=== PATIENT | female | born 1935 | race Caucasian/White ===

== ENCOUNTER 2016-11-25 17:10 | Emergency (ER) | payer OTHER, MEDICARE ==
[2016-11-25 17:40] VITALS: BP 140/80; PULSE 84; TEMP 97.5; BMI 30.2
[2016-11-25] MEDS ORDERED: SODIUM CHLORIDE 1,000 ML IV SCH (19:45)
[2016-11-25 20:52] LABS: BASOPHIL 0.8 % (0-2.0); EOSINOPHIL 2.3 % (0-4.5); MCH 26.9 pg (25.7-33.7); MCHC 32.5 g/dl (32.0-36.0); MEAN CELL VOLUME 82.9 fl (80-96); NEUTROPHILS 66.9 % (42.8-82.8); PLATELET COUNT 257 K/MM3 (134-434); RDW 15.6 % (11.6-15.6); WHITE BLOOD COUNT 6.9 K/mm3 (4.0-10.0)
[2016-11-25 21:00] LABS: URINE APPEARANCE CLEAR; URINE BILIRUBIN NEGATIVE (NEGATIVE); URINE BLOOD NEGATIVE (NEGATIVE); URINE COLOR LTYELLOW; URINE GLUCOSE (UA) NEGATIVE (NEGATIVE); URINE KETONE NEGATIVE (NEGATIVE); URINE LEUK ESTERASE NEGATIVE (NEGATIVE); URINE NITRITE NEGATIVE (NEGATIVE); URINE PROTEIN NEGATIVE (NEGATIVE); URINE UROBILINOGEN NEGATIVE E.U./dl (0.2-1.0)
[2016-11-25] MEDS ORDERED: METOCLOPRAMIDE HCL INJECTION 10 MG/2 ML VIAL IVPB ONE (21:01)
--- NOTE | 2016-11-25 21:01 | PDOC ---
History of Present Illness - General Chief Complaint: Pain, Acute Stated Complaint: ABDOMINAL PAIN Time Seen by Provider: 11/25/16 18:48 History Source: Patient, Family Exam Limitations: Language Barrier - History of Present Illness Travel History: No Initial Comments: 11/25/16 20:43 81yo Female patient presents to ED with son and . Patient son translated for mother in Vincentian from [place]. Patient c/o abd pain x 3 days getting worse which has since subsided while in ED. Patient reports that pain is to her right upper and lower quadrant and became severe around 430pm lasting for 15-20 mins in duration. Patient denies n/v/d, fever, CP, Back pain, dysuria, hematuria , rectal bleeding, poor appetite, or any other complaints at this time. Patient last ate full meal at 530ish pm. She reports normal BM today. Recent Thyroid nodule removal (Cancerous). Timing/Duration: reports: getting worse Quality: reports: severe Abdominal Pain Onset Location: reports: RUQ, RLQ Pain Radiation: reports: no radiation Activities at Onset: reports: no specific activity Treatment Prior to Arrive: worse with: analgesics, antacids, cold pack, heat, laxative, enema, other Aggravating Factors: worse with: None, Defecation, Eating, Emotional upset, Exertion, [place], Movement, Voiding, Change in position Alleviating Factors: worse with: None, Belching, Shallow Breathing, Defecation, Eating, Holding Breath, Passing Gas, Change in Position, Rest, Voiding, Vomiting Past History - Travel Traveled outside of the country in the last 30 days: No Close contact w/someone who was outside of country & ill: No - Past Medical History Allergies/Adverse Reactions: Allergies Allergy/AdvReac Type Severity Reaction Status Date / Time No Known Drug Allergies Allergy Verified 11/25/16 17:33 Home Medications: Ambulatory Orders Amlodipine Besylate [Norvasc -] 2.5 mg PO DAILY 11/25/16 Calcium Carbonate [Calcium] 500 mg PO DAILY 11/25/16 Cholecalciferol (Vitamin D3) [Vitamin D3 -] 1,000 unit PO DAILY 11/25/16 Citalopram Hydrobromide [Celexa -] 20 mg PO DAILY 11/25/16 Lactobacillus Acidophilus [Probiotic] 1 each PO DAILY 11/25/16 Lansoprazole [Prevacid -] 15 mg PO DAILY 11/25/16 Vitamin E 200 unit PO DAILY 11/25/16 Warfarin Sodium [Coumadin] 5 mg PO DAILY 11/25/16 Anemia: No Asthma: No Cancer: No Cardiac Disorders: Yes (MITRAL VALVE REPLACEMENT) CVA: No COPD: No CHF: No Dementia: No Diabetes: No GI Disorders: No Disorders: No HTN: No Hypercholesterolemia: No Liver Disease: No Seizures: No Thyroid Disease: Yes (PARTIAL THYRODECTOMY-11/20/2016) - Surgical History Cardiac Surgery: Yes (VALVE SX) Cholecystectomy: Yes - Psycho/Social/Smoking Cessation Hx Suicidal Ideation: No Smoking Status: No Smoking History: Never smoked Have you smoked in the past 12 months: No Number of Cigarettes Smoked Daily: 0 Hx Alcohol Use: Yes (WINE OCCAS) Drug/Substance Use Hx: No Substance Use Type: None Hx Substance Use Treatment: No Abd/GI Specific PMHX - Complaint Specific PMHX Colitis: No Diverticulitis: No Gall Bladder Disease: No GERD: No Hepatitis: No Irritable Bowel Synd (IBS): No Pancreatitis: No GI Ulcer Disease: No Review of Systems - Review of Systems Able to Perform ROS?: Yes Is the patient limited Vincentian proficient: No Constitutional: No: Chills, Fever Respiratory: No: Cough, Shortness of Breath, Stridor, Wheezing Cardiac (ROS): Yes: Irregular Heart Rate. No: Chest Pain, Edema, Palpitations, Chest Tightness ABD/GI: Yes: Other (Abdominal Pain). No: Constipated, Diarrhea, Nausea, Poor Appetite, Poor Fluid Intake, Rectal Bleeding, Vomiting, Tarry Stools : No: Burning, Dysuria, Flank Pain, Hematuria Musculoskeletal: No: Back Pain Integumentary: No: Bruising, Rash Neurological: No: Headache, Unsteady Gait, Ataxia All Other Systems: Reviewed and Negative *Physical Exam - Vital Signs Last Vital Signs Temp Pulse Resp BP Pulse Ox 97.5 F L 84 17 140/80 95 11/25/16 17:33 11/25/16 17:33 11/25/16 17:33 11/25/16 17:33 11/25/16 17:33 - Physical Exam General Appearance: Yes: Nourished, Appropriately Dressed. No: Apparent Distress, Mild Distress, Moderate Distress, Severe Distress Neck: positive: Trachea midline, Supple. negative: Tender, Normal Thyroid, Rigid, Stridor, Lymphadenopathy (R), Lymphadenopathy (L) Respiratory/Chest: positive: Lungs Clear, Normal Breath Sounds. negative: Respiratory Distress, Accessory Muscle Use, Labored Respiration, Rapid RR, Rhonchi, Stridor, Wheezing Cardiovascular: positive: Irregularly Irregular. negative: Edema, JVD, Murmur Gastrointestinal/Abdominal: positive: Increased Bowel Sounds, Distended. negative: Soft, Guarding, Rebound, Tenderness, Mass Musculoskeletal: negative: Normal Inspection Extremity: positive: Normal Capillary Refill, Normal Inspection, Normal Range of Motion. 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 member II-XII NML intact, Fully Oriented, Alert, Normal Mood/ Affect, Normal Response ED Treatment Course - LABORATORY CBC & Chemistry Diagram: 11/25/16 20:19 11/25/16 20:19 - RADIOLOGY Radiology Studies Ordered: Category Date Time Status ABDOMEN & PELVIS CT WITH CONTR [CT] Stat CT Scan 11/25/16 19:35 Ordered *DC/Admit/Observation/Transfer Diagnosis at time of Disposition: Abdominal pain Qualifiers: Abdominal location: right upper quadrant Qualified Code(s): R10.11 - Right upper quadrant pain - Discharge Dispostion Disposition: HOME Condition at time of disposition: Improved Admit: No - Patient Instructions Printed Discharge Instructions: DI for Abdominal Pain-Adult Additional Instructions: FOLLOW UP WITH YOUR PRIMARY CARE PROVIDER THIS WEEK. CALL TO SCHEDULE APPOINTMENT. CONTINUE YOUR MEDICATIONS PRESCRIBED. RETURN IF SYMPTOMS WORSEN OR ANY CONCERNS FOR FURTHER EVALUATION. Print Language: ARABIC
[2016-11-25] MEDS ORDERED: METOCLOPRAMIDE HCL INJECTION 10 MG/2 ML VIAL ONE (21:14)
[2016-11-25 21:45] LABS: ALBUMIN 3.5 g/dl (3.4-5.0); AMYLASE 48 U/L (25-115); ANION GAP 10 (8-16); BILIRUBIN,TOTAL 0.3 mg/dL (0.2-1.0); CALCIUM 9.6 mg/dL (8.5-10.1); CO2 29 mmol/L (21-32); CREATININE 0.8 mg/dL (0.55-1.02); GLUCOSE,RANDOM 96 mg/dL (74-106); SGOT/AST 52 U/L (15-37); SGPT/ALT 57 U/L (12-78); TOT PROT 6.6 g/dl (6.4-8.2)
[2016-11-25 21:48] LABS: ALK PHOS 77 U/L (45-117); TROPONIN I < 0.02 ng/ml (0.00-0.05)
[2016-11-26] MEDS ORDERED: PANTOPRAZOLE SODIUM 40 MG in SODIUM CHLORIDE 100 ML IVPB ONE (00:15)
[2016-11-26] MEDS ORDERED: PANTOPRAZOLE SODIUM 40 MG VIAL ONE (01:25)
--- NOTE | 2016-11-26 23:22 | EKG ---
Test Reason : Blood Pressure : / mmHG Vent. Rate : 068 BPM Atrial Rate : 500 BPM P-R Int : 000 ms QRS Dur : 144 ms QT Int : 440 ms P-R-T Axes : 000 -06 -12 degrees QTc Int : 467 ms UNDETERMINED RHYTHM CANNOT RULE OUT ATRIAL FIBRILLATION RIGHT BUNDLE BRANCH BLOCK ABNORMAL ECG WHEN COMPARED WITH ECG OF 10-DEC-2012 18:55, POSSIBLE RHYTHM CHANGE CLINICAL CORRELATION IS RECOMMENDED Confirmed by LISA CLAY, BREANNE ([id number]) on 11/26/2016 11:22:04 PM Referred By: Confirmed By:BREANNE GONZALEZ MD
== END 2016-11-26 01:55 | disposition home or self-care (01) ==
LOC: JER 17:10
PROC: 3E0337Z Introduction of Electrolytic and Water Balance Substance into Peripheral Vein, Percutaneous Approach (ICD-10-PCS; principal; 2016-11-25)
PROC: 3E033GC Introduction of Other Therapeutic Substance into Peripheral Vein, Percutaneous Approach (ICD-10-PCS; 2016-11-25)
PROC: 3E033GC Introduction of Other Therapeutic Substance into Peripheral Vein, Percutaneous Approach (ICD-10-PCS; 2016-11-25)
DX: R10.11 Right upper quadrant pain (principal); Z95.2 Presence of prosthetic heart valve; Z79.01 Long term (current) use of anticoagulants; Z85.850 Personal history of malignant neoplasm of thyroid
CPT/HCPCS: 36415; 74177-TC; 76705-TC; 80053; 81003; 82150; 82550; 83605; 83690; 84484; 85025; 87086; 93005; 93010; 96361; 96365; 96375; 99282-25; Q9967

== ENCOUNTER 2020-08-04 11:27 | Inpatient (IN) | payer OTHER, MEDICARE ==
--- NOTE | 2020-08-04 11:38 | PDOC ---
History of Present Illness - General Chief Complaint: Pain, Acute Stated Complaint: ABD PAIN Time Seen by Provider: 08/04/20 11:38 - History of Present Illness Initial Comments: 08/04/20 12:14 85 yo female with pmh of afib (on warfarin), cholecystectomy, valve replacement presents to ED for lower abd pain for the last two weeks. Pt is primarily afghan speaking and daughter translated. Pt explains that she is been having on and off lower abdominal pain for two weeks. The abdominal pain has been constant for the last five days. Pt on Friday called her PCP Dr. Jhonathan Tejeda for pain who prescribed her cephalexin 500 mg TID. Pt sxs since then have been getting worse and after calling her pcp again today her pcp told her to come straght to the ER. PT explains pain is dull 6/10 pain going along her lower abdomen. Pt explains no fevers, chills, appetite change, chest pain, SOB, dysuria, urinary frequency, back pain, n/v/d/c, bloody stools, or black stools. PMH: afib Meds: warfarin 5mg, levothyrocitin .75mg, Famotidine 20mg Allergies: NKA PSH: Cholecystectomy PCP: Dr. Jhonathan Damon GI: Dr. Saavedra Past History - Medical History Allergies/Adverse Reactions: Allergies Allergy/AdvReac Type Severity Reaction Status Date / Time No Known Drug Allergies Allergy Verified 08/04/20 12:39 Home Medications: Ambulatory Orders Warfarin Sodium [Coumadin] 5 mg PO DAILY 11/25/16 Famotidine [Pepcid] 20 mg PO DAILY 08/04/20 Levothyroxine [Synthroid -] 75 mcg PO DAILY 08/04/20 Anemia: No Asthma: No Cancer: No Cardiac Disorders: Yes (MITRAL VALVE REPLACEMENT) CVA: No COPD: No CHF: No Dementia: No Diabetes: No GI Disorders: No Disorders: No HTN: No Hypercholesterolemia: No Liver Disease: No Seizures: No Thyroid Disease: Yes (PARTIAL THYRODECTOMY-11/20/2016) - Surgical History Cardiac Surgery: Yes (VALVE SX) Cholecystectomy: Yes - Psycho-Social/Smoking History Smoking Status: No Smoking History: Never smoked Have you smoked in the past 12 months: No Number of Cigarettes Smoked Daily: 0 Review of Systems - Review of Systems Comments:: 08/04/20 12:36 GENERAL/CONSTITUTIONAL: No fever or chills. No weakness. HEAD, EYES, EARS, NOSE AND THROAT: No change in vision. No ear pain or discharge. No sore throat. CARDIOVASCULAR: No chest pain or shortness of breath RESPIRATORY: No cough, wheezing, or hemoptysis. GASTROINTESTINAL: No nausea, vomiting, diarrhea or constipation. Lower Abd pain GENITOURINARY: No dysuria, frequency, or change in urination. MUSCULOSKELETAL: No joint or muscle swelling or pain. No neck or back pain. SKIN: No rash NEUROLOGIC: No headache, vertigo, loss of consciousness, or change in strength/sensation. ALLERGIC/IMMUNOLOGIC: No hives or skin allergy. *Physical Exam - Physical Exam 08/04/20 12:37 GENERAL: Awake, alert, and fully oriented, in moderate distress HEAD: No signs of trauma, normocephalic, atraumatic EYES EOMI, sclera anicteric, conjunctiva clear ENT: Auricles normal inspection, hearing grossly normal, nares patent, oropharynx clear without exudates. Moist mucosa NECK: Normal ROM, supple, no lymphadenopathy, JVD, or masses LUNGS: No distress, speaks full sentences, clear to auscultation bilaterally HEART:Irregular rate and rhythm. Systolic murmur ABDOMEN: Soft, nontender, normoactive bowel sounds. No guarding, no rebound. No masses EXTREMITIES : Normal inspection, Normal range of motion, no edema. No clubbing or cyanosis. NEUROLOGICAL: Cranial nerves II through XII grossly intact. Normal speech SKIN: Warm, Dry, normal turgor, no rashes or lesions noted Heart Score/ECG Review - ECG Impressions Comment:: 08/04/20 12:49 Irregular rhythm and rate at 78 bpm (AFib) Left axis deviated T wave inversion in V1-V3 similar to prior ECG in 2017 08/04/20 12:51 ED Treatment Course - LABORATORY CBC & Chemistry Diagram: 08/04/20 12:18 08/04/20 12:18 Medical Decision Making - Medical Decision Making 08/04/20 12:22 85 yo female with pmh of afib on warfarin presents to ED for lower abdominal pain going on for the last 2 weeks. Pt abd soft and nontender in all 4 quadrants. Ddx: Mesenteric Ischemia, Ischemic colitis, UTI, diverticulitis, cystitis, Appendicitis, muscle pain Will get CBC, CMP, lactic acid, Coags. Will also get CT either CTA or CT scan depending on renal level. Will also get UA for possible UTI. 08/04/20 13:59 Pt INR elevated to 7.18 with no active bleeding. Will hold warfarin next two doses. Also done stool occult blood to see any gi bleeding. Rectal exam showed no occult blood on exam. 08/04/20 14:25 Stool occult is positive for blood and with INR 7.18 will give 2.5 Vitamin K. Still waiting results of CTA of abd and pelvis 08/04/20 15:17 PT CTA showed no acute pathology. Pt pain is still the same so will give 2 mg morphine. Pt will be admitted for elevated INR, GI bleed and intractable abdominal pain. Dr. Mehta was called at told about pt ED course and plan. Dr. Mehta agreed with admission but does not go to [place] so said to admit to Hospitalist. TIRE MAINTENANCE TECHNICIAN Tiffanie Love was informed of pt HPI, ED course, and plan. Pt will be admitted to Dr. Puckett. Discharge - Discharge Information Problems reviewed: Yes Clinical Impression/Diagnosis: Elevated INR, Intractable abdominal pain GI bleed Qualifiers: GI bleed type/associated pathology: unspecified gastrointestinal hemorrhage type Qualified Code(s): K92.2 - Gastrointestinal hemorrhage, unspecified Condition: Stable - Admission Yes - Follow up/Referral Referrals: Jhonathan Bryson MD [Primary Care Provider] - - Patient Discharge Instructions - Post Discharge Activity
--- NOTE | 2020-08-04 11:45 | PDOC ---
Attending Attestation - Resident Resident Name: Sudhakar Alatorre - ED Attending Attestation I have performed the following: I have examined & evaluated the patient, The case was reviewed & discussed with the resident, I agree w/resident's findings & plan, Exceptions are as noted - HPI HPI: 08/04/20 11:44 85 YOF with h/o A-fib on warfarin, CAD s/p CABG, HTN, partial thyroidectomy, mitral valve replacement, and cholecystectomy, who p/w lower abdominal pain fluctuating for the past 2 weeks which became worse in the past 4 days. She denies any f/c/n/v/d/c, dysuria, hematuria, black stool or bloody stool. She has had no sick contacts recently. She called her PCP Dr. Landaverde who prescribed an antibiotic on 4 days ago for the possibility of bacterial infection, which she has been taking since that time. - Physicial Exam PE: 08/04/20 11:44 GENERAL: elderly, mild distress, answers questions appropriately, accompanied by daughter at bedside who assists in history HEENT: PERRLA, EOMI, moist mucous membranes NECK/BACK: no midline ttp, no spinal stepoff or deformity, no hematoma, full ROM, neck supple CARDIOVASCULAR: irregularly irregular but not tachycardic, 2/6 systolic murmur, strong peripheral pulses, capillary refill <2 seconds, extremities wwp, no edema LUNGS/RESPIRATORY: no respiratory distress, CTAB GI/ABDOMEN: symmetric [id number], normoactive BS, soft, no ttp, no midline pulsatile masses : no CVA tenderness MSK/EXTREMITIES: no acute-appearing muscle atrophy, no acute deformity DERM/SKIN: warm and dry, no pallor, no jaundice, no rash, no pathologic- appearing bruising, no skin breakdown, no cuts, no lesions NEUROLOGICAL: GCS 15, CN II-XII grossly intact, 5/5 strength proximally and distally, no facial droop - Medical Decision Making 08/04/20 12:57 85YOF with A-fib on warfarin with last level checked p/w lower abdominal pain ongoing for 2 weeks Initial Vital Signs Temp Pulse Resp BP Pulse Ox 98.1 F 76 19 118/76 99 08/04/20 11:27 08/04/20 11:27 08/04/20 11:27 08/04/20 11:27 08/04/20 11:27 The patient does have pain out of proportion with examination, and A-fib. She is on warfarin and last INR was 2.02 on 07/13/20. States taking it as prescribed. There is concern for mesenteric ischemic or slightly less likely ischemic colitis. The patient has had no rectal bleeding she can report. 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 The patient is high risk for mesenteric ischemic and needs abdomen/pelvis CTA. Provider Orders Category Date Time Status Decision to Admit to Hospital Routine Admission 08/04/20 15:04 Active ABDOMEN/PELVIS CTA W/WO CONTR [CT] Stat CT Scan 08/04/20 13:08 Completed ELECTROCARDIOGRAM [CARD] Stat Cardiology 08/04/20 12:01 Ordered EKG needed NOW Care 08/04/20 12:01 Completed CBC WITH DIFFERENTIAL Stat Lab 08/04/20 12:18 Completed COMP METABOLIC PANEL Stat Lab 08/04/20 12:18 Completed LACTIC ACID Stat Lab 08/04/20 12:18 Completed PT/INR (PROTHROMBIN TIME) Stat Lab 08/04/20 12:18 Completed PTT [ACTIVATED PTT] Stat Lab 08/04/20 12:18 Completed STOOL FOR OCCULT BLOOD Stat Lab 08/04/20 13:44 Completed UA ([facility] ONLY) Stat Lab 08/04/20 12:30 Completed URINE MICROSCOPIC (RAZ) Stat Lab 08/04/20 12:30 Completed Acetaminophen Injection [Ofirmev Injection -] Medication 08/04/20 12:02 Discontinued 1,000 mg IVPB ONCE ONE Acetaminophen Injection [Ofirmev Injection -] 100 ml Medication 08/04/20 12:34 Discontinued IVPB UD Morphine Injection - Medication 08/04/20 15:05 Discontinued 2 mg IVPUSH ONCE ONE Phytonadione [Mephyton -] Medication 08/04/20 14:20 Discontinued 2.5 mg PO ONCE ONE URINE CULTURE Stat Micro 08/04/20 12:30 Received Medications Discontinued Medications Generic Name Dose Route Start Last Admin Trade Name Freq PRN Reason Stop Dose Admin Acetaminophen 1,000 mg 08/04/20 12:02 08/04/20 12:38 Ofirmev Injection - IVPB 08/04/20 12:03 1,000 mg ONCE ONE Administration Acetaminophen Confirm 08/04/20 12:34 Ofirmev Injection - Administered 08/04/20 12:35 Dose 100 mls @ ud IVPB .STK-MED ONE Morphine Sulfate 2 mg 08/04/20 15:05 08/04/20 15:18 Morphine Injection - IVPUSH 08/04/20 15:06 Not Given ONCE ONE Phytonadione 2.5 mg 08/04/20 14:20 08/04/20 14:43 Mephyton - PO 08/04/20 14:21 2.5 mg ONCE ONE Administration Lab Results WBC 5.7 K/mm3 (4.0-10.8) 08/04/20 12:18 RBC 3.87 M/mm3 (3.60-5.2) 08/04/20 12:18 Hgb 11.3 GM/dl (10.7-15.3) 08/04/20 12:18 Hct 35.3 % (32.4-45.2) 08/04/20 12:18 MCV 91.4 fl (80-96) 08/04/20 12:18 MCH 29.2 pg (25.7-33.7) 08/04/20 12:18 MCHC 31.9 g/dl (32.0-36.0) L 08/04/20 12:18 RDW 14.6 % (11.6-15.6) 08/04/20 12:18 Plt Count 212 K/MM3 (134-434) 08/04/20 12:18 MPV 10.3 fl (7.5-11.1) 08/04/20 12:18 Absolute Neuts (auto) 3.5 K/mm3 08/04/20 12:18 Neutrophils % 62.3 % (42.8-82.8) 08/04/20 12:18 Lymphocytes % 25.9 % (8-40) 08/04/20 12:18 Monocytes % 7.2 % (3.8-10.2) 08/04/20 12:18 Eosinophils % 2.8 % (0-4.5) 08/04/20 12:18 Basophils % 1.8 % (0-2.0) 08/04/20 12:18 PT with INR 84.3 SEC (10.2-13.0) H 08/04/20 12:18 INR 7.84 (0.82-1.09) H* 08/04/20 12:18 PTT (Actin FS) 60.3 SECONDS (25.2-36.5) H 08/04/20 12:18 Sodium 138 mmol/L (136-145) 08/04/20 12:18 Potassium 4.5 mmol/L (3.5-5.1) 08/04/20 12:18 Chloride 107 mmol/L (98-107) 08/04/20 12:18 Carbon Dioxide 26 mmol/L (21-32) 08/04/20 12:18 Anion Gap 5 MMOL/L (8-16) L 08/04/20 12:18 BUN 19.0 mg/dl (7-18) H 08/04/20 12:18 Creatinine 0.8 mg/dl (0.55-1.3) 08/04/20 12:18 Est GFR (CKD-EPI)AfAm 76.83 08/04/20 12:18 Est GFR (CKD-EPI)NonAf 66.29 08/04/20 12:18 Random Glucose 103 mg/dl (74-106) 08/04/20 12:18 Lactic Acid 1.2 mmol/L (0.4-2.0) 08/04/20 12:18 Calcium 8.5 mg/dl (8.5-10) 08/04/20 12:18 Total Bilirubin 0.5 mg/dl (0.2-1) 08/04/20 12:18 AST 28 U/L (15-37) 08/04/20 12:18 ALT 27 U/L (13-61) 08/04/20 12:18 Alkaline Phosphatase 53 U/L (45-117) 08/04/20 12:18 Total Protein 5.7 g/dl (6.4-8.2) L 08/04/20 12:18 Albumin 3.2 g/dl (3.4-5.0) L 08/04/20 12:18 Urine Color Yellow 08/04/20 12:30 Urine Appearance Clear 08/04/20 12:30 Urine pH 5.0 (4.5-8) 08/04/20 12:30 Urine Protein Negative (NEGATIVE) 08/04/20 12:30 Urine Glucose (UA) Negative (NEGATIVE) 08/04/20 12:30 Urine Ketones Negative (NEGATIVE) 08/04/20 12:30 Urine Blood Negative (NEGATIVE) 08/04/20 12:30 Urine Nitrite Negative (NEGATIVE) 08/04/20 12:30 Urine Bilirubin Negative (NEGATIVE) 08/04/20 12:30 Urine Urobilinogen 0.2 (0.2-1.0) 08/04/20 12:30 Ur Leukocyte Esterase Trace (NEGATIVE) H 08/04/20 12:30 Urine RBC 0-2 /hpf (0-4) 08/04/20 12:30 Urine WBC 2-5 (NEGATIVE) 08/04/20 12:30 Ur Transition Epith Cell Few /hpf 08/04/20 12:30 Urine Bacteria Few /hpf (NEGATIVE) 08/04/20 12:30 Stool Occult Blood Positive (NEGATIVE) 08/04/20 13:44 CT/ABDOMEN/PELVIS CTA W/WO CONTR Patient Name: RUSS SAXENA Accession Number: [id number] :[id number] Gender: Female Procedure: ABDOMEN/PELVIS CTA W/WO CONTR INDICATION: 85 years Female rule out mesenteric ischemia TECHNIQUE: CT scan of the abdomen/pelvis was performed from the lung bases through the symphysis pubis. Enteric contrast: Not administered. IV contrast: Administered. COMPARISON: November 25, 2016 FINDINGS/DISCUSSION: Lung bases: Assessment is significantly degraded by respiratory motion. No pleural effusion. Dependent atelectasis. 0.5 cm right lower lobe nodule (image 4 of series 2). Heart: Cardiomegaly. Hyperdense material at the mitral and aortic valves. Correlate for history of intervention. Aorta: Normal caliber. Extensive atherosclerotic calcifications. No evidence of dissection. The primary branches of the abdominal aorta demonstrate conventional anatomy and unremarkable op acification. Esophagus: Large hiatal hernia. Liver: Normal size and contour. Pneumobilia is redemonstrated. The hepatic veins are patent. Spleen: Unremarkable. Pancreas: Unremarkable. Gallbladder: Surgically absent. Adrenals: Unremarkable. Kidneys: No hydronephrosis. Retroperitoneum: Unremarkable. Peritoneum: No free fluid or air. No lymphadenopathy. Bowel: No evidence of obstruction. The appendix is not reliably identified, however there is no secondary evidence to suggest appendicitis. Extensive diverticulosis without evidence of diverticulitis. Pelvis: No free pelvic fluid. No bulky iliac or inguinal adenopathy. Urinary bladder: Unremarkable. Uterus: Unremarkable. Adnexa: Unremarkable. Bones: Multilevel degenerative disc disease. L4-L5 fusion hardware is demonstrated. Focus of low attenuation at the L1 vertebral body is not significantly changed. Other: Fat-containing umbilical hernia. IMPRESSION: Assessment is degraded by significant respiratory motion artifacts. No evidence of aortic dissection. Primary branches of the abdominal aorta demonstrate conventional anatomy and unremarkable opacification with contrast. Large hiatal hernia. Extensive diverticulosis without evidence of diverticulitis. Status post cholecystectomy with pneumobilia. Cardiomegaly. 0.5 cm right lower lobe nodule is not seen on the prior study. If patient is clinically deemed to be high risk, a follow-up chest CT in 6 months is recommended. 08/04/20 15:40 Admission protocols per resident note. Patient requiring admission for intractable abdominal pain, GIB, supratherapeutic INR. Has been given small dose vitamin K to start out. Heart Score/ECG Review #1 08/04/20 11:43 A-fib, rate 74, normal axis, RBBB, TWF in aVF, no other ischemic ST-T changes Discharge - Discharge Information Problems reviewed: Yes Clinical Impression/Diagnosis: Elevated INR, Intractable abdominal pain GI bleed Qualifiers: GI bleed type/associated pathology: unspecified gastrointestinal hemorrhage type Qualified Code(s): K92.2 - Gastrointestinal hemorrhage, unspecified Condition: Stable - Admission Yes - Follow up/Referral Referrals: Jhonathan Bryson MD [Primary Care Provider] - - Patient Discharge Instructions - Post Discharge Activity
--- OUTSIDE RECORDS SUMMARY | 2020-08-04 11:52 | XMS ---
:1935 Author Organization [facility] Care Team Providers Name Role Phone ANGELINE GIL Unavailable Unavailable REECE TOVAR Unavailable Unavailable Re-disclosure Warning The records that you are about to access may contain information from federally- assisted alcohol or drug abuse programs. If such information is present, then the following federally mandated warning applies: This information has been disclosed to you from records protected by federal confidentiality rules (42 CFR part 2). The federal rules prohibit you from making any further disclosure of this information unless further disclosure is expressly permitted by the written consent of the person to whom it pertains or as otherwise permitted by 42 CFR part 2. A general authorization for the release of medical or other information is NOT sufficient for this purpose. The Federal rules restrict any use of the information to criminally investigate or prosecute any alcohol or drug abuse patient.The records that you are about to access may contain highly sensitive health information, the redisclosure of which is protected by Article 27-F of the [facility] Public Health law. If you continue you may haveaccess to information: Regarding HIV / AIDS; Provided by facilities licensed or operated by the [facility] Office of Mental Health; or Provided by the [facility] Office for People With Developmental Disabilities. If such information is present, then the following [facility] mandated warning applies: This information has been disclosed to you from confidential records which are protected by state law. State law prohibits you from making any further disclosure of this information without the specific written consent of the person to whom it pertains, or as otherwise permitted by law. Any unauthorized further disclosure in violation of state law may result in a fine or retirement sentence or both. A general authorization for the release of medical or other information is NOT sufficient authorization for further disclosure. Allergies and Adverse Reactions Type Description Substance Reaction Status Data Source(s ) Food allergy No Known Food No Known Food [facility] Allergies Allergies Health [facility] Drug allergy No Known Drug No Known Drug [facility] Allergies Allergies [facility] Drug allergy No Known Allergies No Known [facility] Allergies Health [facility] Encounters Encounter Providers Location Date Indications Data Source(s ) Outpatient Attender: [place], 06/29/2019 DIZZINESS [facility] RICHARDAttender: 11:06:00 PM [place] [facility] LOUISE, EDT EnerG2 ERICAdmitter: ANGELINE GIL DIZZINESS [place] Emergency Attender: LOUISE, 06/29/2019 12:43:00 FALL HEAD [facility] ERICAdmitter: LOUISE, PM EDT [facility] Insurance Providers Payer name Policy type Policy ID Covered Covered libertarian's Policy P isrrael / Coverage libertarian ID relationship to Connolly Inf ormation type connolly [facility] [id number] CARE [employer]IONS MEDICARE [id number] Problems, Conditions, and Diagnoses Code Display Name Description Problem Type Effective Data Sour ce(s) Dates 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 06/29/2019 [place] (current) use of (CURRENT) USE OF 11:06:00 PM C [employer] anticoagulants ANTICOAGULANTS EDT Care EnerG2 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 Diagnosis 06/29/2019 [place] of other specified OF OTHER SPECIFIED 11:06:00 [facility] parts of digestive PARTS OF DIGESTIVE EDT Care tract TRACT EnerG2 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 11:06:00 PM C [employer] valve VALVE EDT Care EnerG2 Z91.81 History of falling HISTORY OF FALLING Diagnosis 9 [place] 11:06:00 PM [facility] EDT Care EnerG2 E03.9 Hypothyroidism, HYPOTHYROIDISM, Diagnosis [facility] UNSPECIFIED 11:06:00 PM [facility] EDT Care EnerG2 K21.9 Gastro-esophageal GASTRO-ESOPHAGEAL Diagnosis 06/29/2019 [place] reflux disease REFLUX DISEASE 11:06:00 PM Count y Health without WITHOUT EDT Care esophagitis ESOPHAGITIS EnerG2 R42 Dizziness and DIZZINESS AND Diagnosis 06/29/2019 [facility] giddiness GIDDINESS 11:06:00 PM [facility] EDT Care EnerG2 R26.89 Other OTHER Diagnosis 06/29/2019 [place] abnormalities of ABNORMALITIES OF 11:06:00 PM Critical access hospital gait and mobility GAIT AND MOBILITY EDT Care Corporation M25.78 Osteophyte, OSTEOPHYTE, Diagnosis 06/29/2019 [place] vertebrae VERTEBRAE 11:06:00 PM [facility] EDT Care EnerG2 M48.02 Spinal stenosis, SPINAL STENOSIS, Diagnosis 06/29/[address] 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 06/29/2019 [place] pulmonary valve PULMONARY VALVE 11:06:00 PM Cou [facility] insufficiency INSUFFICIENCY EDT Care Corporation I35.1 Nonrheumatic NONRHEUMATIC Diagnosis 06/29/2019 [place] aortic (valve) AORTIC (VALVE) 11:06:00 PM Count Health insufficiency INSUFFICIENCY EDT Care Corporation I36.1 Nonrheumatic NONRHEUMATIC Diagnosis 06/29/2019 [place] tricuspid (valve) TRICUSPID (VALVE) 11:06:00 PM [facility] INSUFFICIENCY EDT Care Corporation I34.0 Nonrheumatic NONRHEUMATIC Diagnosis 06/29/2019 [place] mitral (valve) MITRAL (VALVE) 11:06:00 PM Count Health insufficiency INSUFFICIENCY EDT Care Corporation 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 11:06:00 PM [facility] block BLOCK EDT Care Corporation I51.7 Cardiomegaly CARDIOMEGALY Diagnosis 06/29/2019 [place] 11:06:00 PM [facility] EDT Care EnerG2 I48.2 Chronic atrial CHRONIC ATRIAL Diagnosis 06/29/2019 [facility] mary fibrillation FIBRILLATION 11:06:00 PM [facility] DocuSpeakT Care EnerG2 Y99.8 Other external OTHER EXTERNAL Diagnosis 06/29/2019 [facility] mary cause status CAUSE STATUS 11:06:00 PM [facility] DocuSpeakT [employer] Y92.090 Kitchen in other KITCHEN IN OTH Diagnosis 06/29/2019 [place] non-institutional NON-INSTITUTIONAL 11:06:00 PM [facility] residence as the RESIDENCE PLACE EDT Care place of [facility] occurrence of the external cause W07.XXXA Fall from chair, FALL FROM CHAIR, Diagnosis 06/29/2019 [facility] initial encounter INITIAL ENCOUNTER 11:06:00 PM [facility] EDT [facility] S09.90XA Unspecified injury UNSPECIFIED INJURY Diagnosis 9 [place] of head, initial OF HEAD, INITIAL 11:06:00 PM Critical access hospital encounter ENCOUNTER EDT Care EnerG2 Results ID Date Data Source [id number] 07/01/2019 01:24:03 PM EDT [facility] [id number] Corporation Name Value Range Interpretation Description Data Sup porting Code Source(s) Document(s ) Head (PACSIMAGE <td> 06/29/2019 [place] Without 16:46</td><td> [facility] Contrast- ) Final Head Without Health Care CT Result Contrast-CT Corporation Name: HEMANTH </td><td>arjun SOLANO MRN: [id number] Sex: F styleCode="Italic : s">(PACSIMAGE 1935 Location: F )</paragraph><br/ Admitting >
Final Physician: Result EMERGENCY

SERVICE Name: RUSS SAXENA Requesting
Physician: TAMEKA BALTAZAR Sex: F BRENDA
: Exam: CT HEAD 1935 C- 06/29/2019 Location: F 17:01
CLINICAL Admitting INDICATION: Physician: "R/O Bleed" EMERGENCY SERVICE TECHNIQUE:
CT images of Requesting the head were Physician: TAMEKA GUTIERREZ without the

administration Exam: CT HEAD C- of contrast. 06/29/2019 17:01 COMPARISON:

None. CLINICAL FINDINGS: INDICATION: "R/O Ventricular Bleed" caliber is

within normal TECHNIQUE: CT limits for the images of the johanny atrophy head were ent's stated obtained without age. There the is no administration intracranial
mass or mass of contrast. effect.

Density of the COMPARISON: brain None. parenchyma is

normal for the FINDINGS: patient's age.

There is no Ventricular demarcated caliber is within territorial normal limits for infarct. No the johanny atrophy acute
intraparenchym ent's stated al or age. subarachnoid
There hemorrhage is is no present. intracranial mass There is no or mass effect. extraaxial
collection. Density of the The brain parenchyma visualized is normal for the paranasal patient's age. sinuses are
well aerated. There is no The mastoid demarcated air cells are territorial well aerated. infarct. The
No visualized acute orbits are intraparenchymal unremarkable. or subarachnoid There is no hemorrhage is calvarial present. fracture.
There IMPRESSION: is no extraaxial No acute collection. intracranial

hemorrhage. The visualized paranasal sinuses Resident are well aerated. Radiologist:
Attending The mastoid Radiologist: air cells are Paxton Rodriguez well aerated.
Finalizing The visualized Radiologist: orbits are Paxton Rodriguez unremarkable.
Transcribed There is no Date: calvarial 06/29/2019 fracture. 17:42 Finalized

Date: IMPRESSION: No 06/29/2019 acute 17:44 intracranial hemorrhage.

<b r/> Resident Radiologist:
Attending Radiologist: Paxton Rodriguez MD
Finalizing Radiologist: Paxton Rodriguez MD
Transcribed Date: 06/29/2019 17:42
Finalized Date: 06/29/2019 17:44

</td> Angio (PACSIMAGE <td> 06/29/2019 [place] Head/Neck 16:46</td><td> [facility] CT ) Final Angio Head/Neck Health Car e Result CT Corporation Name: HEMANTH, </td><td>arjun SOLANO MRN: [id number] Sex: F styleCode="Italic : s">(PACSIMAGE 1935 Location: F )</paragraph><br/ Admitting >
Final Physician: Result EMERGENCY

SERVICE Name: RUSS SAXENA Requesting
Physician: TAMEKA BALTAZAR Sex: F BRENDA
: Exam: CT ANGIO 1935 HEAD/NECK Location: F 06/29/2019
17:03 Admitting CLINICAL Physician: INDICATION: EMERGENCY SERVICE Dizziness
TECHNIQUE: Requesting Noncontrast CT Physician: TAMEKA images of the GIOVANNY GUTIERREZ head were

obtained. CT Exam: CT ANGIO angiography of HEAD/NECK the head and 06/29/2019 17:03 neck was then obtained

following CLINICAL the INDICATION: intravenous Dizziness administration

of contrast. TECHNIQUE: Coronal and Noncontrast CT sagittal images of the reconstruction head were images were obtained. CT generated.
COMPARISON: angiography of None. the head and neck FINDINGS: was then obtained The left following common carotid
the artery arises intravenous from the administration of brachiocephali contrast. Coronal c artery, a and sagittal normal
variant. reconstruction There is images were calcified generated. atheroscleroti

c plaque COMPARISON: involving the None. right

carotid FINDINGS: bifurcation.
The There is no left common carotid carotid artery stenosis by arises from the NASCET brachiocephalic criteria..
The vertebral artery, a normal arteries are variant. patent and

without There is significant calcified stenosis.. atherosclerotic The major plaque involving intracranial the right arteries are
patent and carotid without bifurcation. significant There is no stenosis. carotid stenosis Atheroscleroti by NASCET c criteria.. calcification

of cavernous The vertebral segments of arteries are internal patent and carotid without arteries is significant noted. No stenosis.. gross aneurysm

is The major identified.. intracranial IMPRESSION: arteries are 1. No patent and carotid without stenosis by significant NASCET
criteria. 2. stenosis. Patency of the Atherosclerotic major calcification of intracranial cavernous arteries. segments
of Resident internal carotid Radiologist: arteries is Attending noted. No gross Radiologist: aneurysm is Paxton Rodriguez identified..

Finalizing IMPRESSION: Radiologist:
Paxton Rodriguez 1. No carotid MD stenosis by Transcribed NASCET criteria. Date:
06/29/2019 2. Patency of 17:46 the major Finalized intracranial Date: arteries. 06/29/2019 17:55

<b r/>
Resident Radiologist:
Attending Radiologist: Paxton Rodriguez MD
Finalizing Radiologist: Paxton Rodriguez MD
Transcribed Date: 06/29/2019 17:46
Finalized Date: 06/29/2019 17:55

</td> Brain C (PACSIMAGE <td> 06/30/2019 [place] Spine C- 15:56</td><td> [facility] MRI ) Final Brain C Spine C- Health Ca re Result MRI Corporation Name: HEMANTH, </td><td>arjun SOLANO MRN: [id number] Sex: F styleCode="Italic : s">(PACSIMAGE 1935 Location: F )</paragraph><br/ Admitting >
Final Physician: Result REECE TOVAR

Requesting Name: RUSS SAXENA Physician:
REECE TOVAR Exam: MRI Sex: F BRAIN C SPINE
: C- 06/30/2019 1933 17:01 Location: F CLINICAL
INDICATION: Admitting Dizziness, Physician: REECE trejo falls.
TECHNIQUE: Requesting Multiplanar, Physician: sequential MR REECE TOVAR imaging of the

brain and Exam: MRI BRAIN cervical spine C SPINE C- was obtained 06/30/2019 17:01 without the administration

of contrast.. CLINICAL INDICATION: COMPARISON: CT Dizziness, head 06/29/2019. imbalance, falls. FINDINGS: MRI brain:

There is no TECHNIQUE: abnormally Multiplanar, restricted sequential MR diffusion to imaging of the suggest acute brain and infarction.
Scattered cervical spine punctate foci was obtained of T2 without the hyperintensity administration of are present contrast.. in the

cerebral white COMPARISON: CT matter and head 06/29/2019. pontine tegmentum,

nonspecific FINDINGS: but compatible
MRI with chronic brain: small vessel

changes. No There is no evidence for abnormally acute restricted intracranial diffusion to hemorrhage is suggest acute demonstrated.
There is are infarction. punctate foci Scattered of punctate foci of susceptibility T2 hyperintensity artifact in are the right
present frontal in the cerebral lobe, left white matter and parietal lobe pontine and the right tegmentum, cerebellar nonspecific hemisphere
compatible but compatible with chronic with chronic microhemorrhag small vessel e. Ventricles changes. No are evidence nondilated.
for There is no acute extra-axial intracranial collection. hemorrhage is Choroid plexus demonstrated. xanthogranulom There is are as are
incidentally punctate foci of noted. susceptibility MRI cervical artifact in the spine: right frontal Images are
degraded by lobe, left motion parietal lobe and artifact. the right Slight cerebellar (approximately hemisphere 2-3 mm)
anterior compatible with subluxation of chronic C7 is noted microhemorrhage. relative to Ventricles are T1, likely nondilated. reflecting
chronic There is no degenerative extra-axial changes. The collection. expected Choroid plexus cervical xanthogranulomas curvature is
exaggerated. are There is incidentally multilevel noted. degenerative

narrowing of MRI cervical the spine: intervertebral

discs, which Images are appear degraded by desiccated. motion artifact. Hero Emanuel Type endplate

degenerative Slight changes are (approximately noted at C4/5 2-3 mm) anterior and C5/6. A subluxation of C7 small osseous is noted hemangioma is
noted in T1. relative to T1, The likely reflecting spinal cord is chronic normal in degenerative caliber. changes. Evaluation of
The parenchymal expected cervical susceptibility curvature is subacute exaggerated. limited by There is artifact, but multilevel no evidence
for degenerative edema/myelomal narrowing of the acia is noted. intervertebral C2-C3: discs, which There is a appear central disc
osteophyte desiccated. Modic complex Dr. Type endplate results in degenerative mild narrowing changes are of the central
canal. No noted at C4/5 and significant C5/6. A small neural osseous foraminal hemangioma is narrowing. noted in C3-C4: There
T1. is a central disc

osteophyte The spinal cord complex as is normal in well as caliber. ligamentous Evaluation of hypertrophy. parenchymal There is
bilateral susceptibility uncinate joint subacute limited hypertrophy by artifact, but resulting in no evidence mild bilateral
neural for foraminal edema/myelomalaci narrowing. a is noted. Central

canal is C2-C3: There is mildly a central disc narrowed. osteophyte C4-C5: There complex results is no in significant
mild spinal canal narrowing of the or neural central canal. No foraminal significant stenosis. neural foraminal C5-C6: There
is a disc narrowing. osteophyte
complex and C3-C4: There is a bilateral central disc uncinate osteophyte joint complex as well hypertrophy. as The central
canal is ligamentous moderate-sever hypertrophy. e central There is canal bilateral stenosis. The uncinate joint neural hypertrophy foramina are
narrowed resulting in mild bilaterally.. bilateral neural C6-C7: There foraminal is a disc narrowing. osteophyte Central complex and
canal bilateral is mildly uncinate narrowed. joint
hypertrophy. C4-C5: There is Central canal no significant is mildly spinal canal or narrowed. The neural foraminal neural
foramina are stenosis. narrowed.
C7-T1: There C5-C6: There is a is no disc osteophyte significant complex and spinal canal bilateral or neural uncinate foraminal
joint stenosis. hypertrophy. The IMPRESSION: central canal is No acute moderate-severe infarction. central Degenerative
canal changes of the stenosis. The cervical neural foramina spine, as are narrowed described, bilaterally.. notably
including C6-C7: There is a moderate-sever disc osteophyte e central complex and canal stenosis bilateral at C5/6. uncinate Resident
joint Radiologist: hypertrophy. Attending Central canal is Radiologist: mildly narrowed. Paxton Rodriguez The neural MD
Finalizing foramina are Radiologist: narrowed. Paxton Rodriguez
MD C7-T1: There is Transcribed no significant Date: spinal canal or 06/30/2019 neural foraminal 18:27
Finalized stenosis. Date:

06/30/2019 IMPRESSION: 18:36
No acute infarction.
Degenerative changes of the cervical spine, as described, notably
including moderate-severe central canal stenosis at C5/6.

<b r/> Resident Radiologist:
Attending Radiologist: Paxton Rodriguez MD
Finalizing Radiologist: Paxton Rodriguez MD
Transcribed Date: 06/30/2019 18:27
Finalized Date: 06/30/2019 18:36

</td> Chest (PACSIMAGE <td> 06/29/2019 [place] Portable 13:13</td><td> [facility] Final Chest Portable Health Care Result </td><td><[place] Name: chayito SAXENA MRN: styleCode="Italic [id number] Sex: F s">(PACSIMAGE : 1935 )</paragraph><br/ Location: F >
Final Admitting Result Physician:

EMERGENCY Name: RUSS SAXENA SERVICE
Requesting Physician: Sex: Jorge BALTAZAR
: BREN[place] 1935 Exam: CHEST Location: F PORTABLE
06/29/2019 Admitting 13:41 Physician: Portable chest EMERGENCY SERVICE June 29
2018 Requesting CLINICAL Physician: TAMEKA HISTORY: GIOVANNY BRENDA Dizziness

There is no Exam: CHEST previous PORTABLE radiograph 06/29/2019 13:41 available for comparison.

The heart is Portable chest noted to be June 29, 2019 enlarged. The presence of

pericardial CLINICAL HISTORY: fluid cannot Dizziness be excluded on

this There is no examination previous suggest radiograph clinical available for correlation comparison. The and
echocardiogram heart is noted as clinically to be enlarged. warranted. The presence of Post median pericardial fluid sternotomy
and valve cannot be replacements. excluded on this There is no examination discernible suggest clinical pneumothorax correlation noted. There
is no evidence and for pleural echocardiogram as effusion. clinically IMPRESSION: warranted. Post Enlarged heart median sternotomy with the
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 effusion There is no cannot be discernible excluded with pneumothorax no previous
studies noted. There is available no evidence for for pleural effusion. comparison. Correlate with

the presence IMPRESSION: of Enlarged heart echocardiogram with the presence as of a pericardial clinically
warranted. effusion cannot Post median be excluded with sternotomy and no previous valve studies available replacements.
Calcified for uncoiled comparison. aorta. No Correlate with focal the presence of consolidation echocardiogram is noted.
as clinically Resident warranted. Post Radiologist: median sternotomy Attending and valve Radiologist: replacements. Santy Salcido
Calcified Finalizing uncoiled aorta. Radiologist: No focal Santy Salcido consolidation is MD noted. Transcribed

<b Date: r/>

<br/ 06/29/2019 > Resident 14:11 Radiologist: Finalized
Date: Attending 06/29/2019 Radiologist: 14:30 Santy Salcido MD
Finalizing Radiologist: Santy Salcido MD
Transcribed Date: 06/29/2019 14:11
Finalized Date: 06/29/2019 14:30

</td> ID Date Data Source [id number] 07/01/2019 01:24:03 PM EDT [facility] [id number] Corporation Name Value Range Interpretation Description Data Sup porting Code Source(s) Document(s ) Leukocytes 5.7 k/mm3 4.8-10 <td> 07/01/2019 [place] [#/volume] in .8 06:31</td><td> [facility] Blood by k/mm3 WBC </td><td> Health Care Automated count Corporation 5.7
(4.8-10.8) k/mm3 </td> Erythrocytes 4.60 m/mm3 3.90-5 <td> 07/01/2019 [facility] r [#/volume] in .20 06:31</td><td> [facility] Blood m/mm3 RBC </td><td> Health Care Corporation 4.60
(3.90-5.20) m/mm3 </td> Hematocrit 37.0 % 37.0-4 <td> 07/01/2019 [place] [Volume 7.0 % 06:31</td><td> [facility] Fraction] of HCT </td><td> Health Care Blood by Corporation Automated count 37.0
(37.0-47.0) % </td> Hemoglobin 11.4 g/dL 12.0-1 <td> 07/01/2019 [place] [Mass/volume] 6.0 06:31</td><td> [facility] in Blood g/dL [facility] </td><td><daniela Corporation raph styleCode="Bold "> 11.4 L </paragraph>
(12.0-16.0) g/dL </td> Erythrocyte 80.4 fL 81.0-9 <td> 07/01/2019 [place] mean 9.0 fL 06:31</td><td> [facility] corpuscular [facility] volume [Entitic </td><td><daniela Corporat ion volume] by raph Automated count styleCode="Bold "> 80.4 L </paragraph>
(81.0-99.0) fL </td> Erythrocyte 30.8 % 32.0-3 <td> 07/01/2019 [place] mean 6.0 % 06:31</td><td> [facility] corpuscular [facility] Health Care hemoglobin </td><td><[facility] concentration raph [Mass/volume] styleCode="Bold in Blood from "> Fetus by 30.8 Automated count L </paragraph>
(32.0-36.0) % </td> Erythrocyte 15.1 % 11.5-1 <td> 07/01/2019 [place] distribution 4.5 % 06:31</td><td> County width [Entitic [facility] Care volume] by </td><td><[facility] Automated count raph styleCode="Bold "> 15.1 H </paragraph>
(11.5-14.5) % </td> Erythrocyte 24.8 pg 27.0-3 <td> 07/01/2019 [place] mean 1.5 pg 06:31</td><td> [facility] corpuscular [facility] Health Care hemoglobin </td><td><[facility] [Entitic mass] raph by Automated styleCode="Bold count "> 24.8 L </paragraph>
(27.0-31.5) pg </td> Lymphocytes 20.0 % 17.0-5 <td> 06/29/2019 [place] [#/volume] in 0.0 % 13:10</td><td> [facility] Blood by Lymphocytes Health Care Automated count </td><td> EnerG2 20.0
(17.0-50.0) % </td> Monocytes/Leuko 9.2 % 0.0-11 <td> 06/29/2019 [facility] cytes [Pure .0 % 13:10</td><td> County number Monocytes. Health Care fraction] in </td><td> Corporation Blood by Automated count 9.2
(0.0-11.0) % </td> Platelets 252 k/mm3 160-41 <td> 07/01/2019 [place] [#/volume] in 0 06:31</td><td> [facility] Blood by k/mm3 Platelet Count Health Care Automated count </td><td> EnerG2 252
(160-410) k/mm3 </td> Platelet mean 10.7 fL 9.8-12 <td> 07/01/2019 [facility] r volume [Entitic .8 fL 06:31</td><td> County volume] in MPV </td><td> Health Care Blood by EnerG2 Automated count 10.7
(9.8-12.8) fL </td> Basophils+Eosin 3.1 % 0.0-5. <td> 06/29/2019 [facility] ophils+Monocyte 0 % 13:10</td><td> County s [#/volume] in Eosinophils Health Care Blood by </td><td> EnerG2 Automated count 3.1
(0.0-5.0) % </td> Immature 0.3 % 0.0-0. <td> 06/29/2019 [place] granulocytes/10 5 % 13:10</td><td> County 0 leukocytes in IG% </td><td> [facility] re Blood by EnerG2 Automated count 0.3
(0.0-0.5) %
The IG fraction represents metamyelocytes, myelocytes and/or
promyelocytes and is only reported as part of the automated
differential when found at a percentage of less than 6.
If higher than 6%, a manual differential will be performed.

(0.0-0.5) % </td> Basophils 1.2 % 0.0-2. <td> 06/29/2019 [place] [#/volume] in 0 % 13:10</td><td> [facility] Blood by Basophils [facility] Automated count </td><td> EnerG2 1.2
(0.0-2.0) % </td> Neutrophils [#] 66.2 % 40.0-7 <td> 06/29/2019 [facility] in Body fluid 6.0 % 13:10</td><td> County by Manual count Neutrophils [facility] Care </td><td> EnerG2 66.2
(40.0-76.0) % </td> Glucose 89 mg/dL 70-105 <td> 07/01/2019 [place] [Mass/volume] mg/dL 06:31</td><td> County in Blood Glucose-Serum Health Care </td><td> EnerG2 89
(70-105) mg/dL </td> Sodium 140 mEq/L 135-14 <td> 07/01/2019 [place] [Moles/volume] 5 06:31</td><td> County in Serum or mEq/L Sodium-Serum Health Care Plasma </td><td> EnerG2 140
(135-145) mEq/L </td> Potassium 4.2 mEq/L 3.5-5. <td> 07/01/2019 [place] [Moles/volume] 1 06:31</td><td> County in Serum or mEq/L Potassium-Serum Health Care Plasma </td><td> EnerG2 4.2
(3.5-5.1) mEq/L </td> Urea nitrogen 17 mg/dL 6-22 <td> 07/01/2019 [facility] r [Mass/volume] mg/dL 06:31</td><td> County in Blood BUN </td><td> Health Care EnerG2 17
(6-22) mg/dL </td> Chloride 105 mEq/L 98-107 <td> 07/01/2019 [place] [Moles/volume] mEq/L 06:31</td><td> County in Serum or Chloride Health Care Plasma </td><td> EnerG2 105
(98-107) mEq/L </td> Carbon dioxide, 28 mEq/L 22-30 <td> 07/01/2019 [facility] total mEq/L 06:31</td><td> County [Moles/volume] CO2 </td><td> Health Car e in Serum or Corporation Plasma 28
(22-30) mEq/L </td> Alanine 13 U/L 6-55 <td> 06/29/2019 [place] aminotransferas U/L 13:10</td><td> County e [Enzymatic ALT (SGPT) Health Care activity/volume </td><td> Corporation ] in Serum or Plasma 13
(6-55) U/L </td> Bilirubin.total 0.3 mg/dL 0.2-1. <td> 06/29/2019 [facility] [Mass/volume] 3 13:10</td><td> County in Blood mg/dL Bilirubin - Health Care Total Corporation </td><td> 0.3
(0.2-1.3) mg/dL </td> Creatinine 0.77 mg/dL 0.57-1 <td> 07/01/2019 [place] [Moles/volume] .11 06:31</td><td> County in Serum or mg/dL Creatinine. Health Care Plasma </td><td> EnerG2 0.77
(0.57-1.11) mg/dL </td> Aspartate 18 U/L 4-35 <td> 06/29/2019 [place] aminotransferas U/L 13:10</td><td> County e [Enzymatic AST (SGOT) Health Care activity/volume </td><td> EnerG2 ] in Serum or Plasma 18
(4-35) U/L </td> Calcium 9.1 mg/dL 8.6-10 <td> 07/01/2019 [place] [Mass/volume] .2 06:31</td><td> County in Blood mg/dL Calcium Health Care </td><td> EnerG2 9.1
(8.6-10.2) mg/dL </td> Albumin 3.7 g/dL 3.4-4. <td> 06/29/2019 [place] [Mass/volume] 8 g/dL 13:10</td><td> County in Serum or Albumin Health Care Plasma </td><td> EnerG2 3.7
(3.4-4.8) g/dL </td> Anion gap in 7 mEq/L 7-13 <td> 07/01/2019 [place] Serum or Plasma mEq/L 06:31</td><td> County Anion Gap Health Care </td><td> EnerG2 7
(7-13) mEq/L </td> Proteins - 6.3 g/dL 6.4-8. <td> 06/29/2019 [place] Total 3 g/dL 13:10</td><td> [facility] Proteins - Health Care Total [facility] </td><td><daniela raph styleCode="Bold "> 6.3 L </paragraph>
(6.4-8.3) g/dL </td> Globulin 2.6 gm/dL 2.9-4. <td> 06/29/2019 [place] [Mass/volume] 0 13:10</td><td> [facility] in Serum gm/dL Globulin Health Care </td><td><daniela Corporation raph styleCode="Bold "> 2.6 L </paragraph>
(2.9-4.0) gm/dL </td> Lipemic index No Lipemia <td> 07/01/2019 [facility] er of Serum or 06:31</td><td> [facility] Plasma Lipemia Index Health [facility] </td><td> EnerG2 No Lipemia
</td> Hemolysis index No <td> 07/01/2019 [facility] of Serum or Hemolysis 06:31</td><td> [facility] Plasma Hemolysis Index [facility] </td><td> EnerG2 No Hemolysis
</td> Prothrombin 14.8 secs 9.8-12 <td> 07/01/2019 [place] time (PT) .0 06:31</td><td> [facility] secs Prothrombin Health Care Time. [facility] </td><td><daniela raph styleCode="Bold "> 14.8 H </paragraph>
(9.8-12.0) secs </td> Phosphate 3.4 mg/dL 2.3-4. <td> 07/01/2019 [place] [Mass/volume] 7 06:31</td><td> [facility] in Serum or mg/dL Inorganic Health Care Plasma Phosphorus [facility] </td><td> 3.4
(2.3-4.7) mg/dL </td> aPTT panel - 38.3 secs 25.0-3 <td> 07/01/2019 [place] Platelet poor 2.0 06:31</td><td> [facility] plasma secs Partial Health Care Thromboplastin Corporation Time </td><td><daniela raph styleCode="Bold "> 38.3 H </paragraph>
(25.0-32.0) secs
Result confirmed. Test repeated.

(25.0-32.0) secs </td> Icteric index Not <td> 07/01/2019 [facility] r of Serum or Icteric 06:31</td><td> [facility] Plasma Icteric Index Health Care </td><td> Corporation Not Icteric
</td> Specific 1.018 {} 1.000- <td> 06/29/2019 [place] gravity of 1.035 13:19</td><td> [facility] Urine by Test Specific Health Care strip [place] EnerG2 </td><td> 1.018
(1.000-1.035) </td> Appearance of Clear <td> 06/29/2019 [facility] Urine 13:19</td><td> [facility] Appearance Health Care </td><td> Corporation Clear
(CLEAR) </td> Protein Negative <td> 06/29/2019 [place] [Presence] in 13:19</td><td> [facility] Urine by Protein Health Care Automated test Qualitative Corporation strip </td><td> Negative
(NEGATIVE) </td> Nitrite Negative <td> 06/29/2019 [place] [Presence] in 13:19</td><td> [facility] Urine by Test Nitrites Health Care strip </td><td> Corporation Negative
(NEGATIVE) </td> Leukocyte TRACE <td> 06/29/2019 [place] esterase 13:19</td><td> [facility] [Presence] in Leukocytes Health Care Urine by Test Esterase Corporation strip </td><td> TRACE
(NEGATIVE) </td> Glucose Negative <td> 06/29/2019 [place] [Presence] in 13:19</td><td> [facility] Urine by Test Glucose_ Health Care strip </td><td> Corporation Negative
(NEGATIVE) </td> Urobilinogen 0.2 mg/dL 0.0-2. <td> 06/29/2019 [place] [Presence] in 0 13:19</td><td> [facility] Urine by mg/dL Urobilinogen Health Care Automated test </td><td> Corporation strip 0.2
(0.0-2.0) mg/dL </td> Leukocytes 4 /HPF 0-5 <td> 06/29/2019 [place] [Presence] in /HPF 13:19</td><td> [facility] Urine by WBC </td><td> Health Care Automated Corporation 4
(0-5) /HPF </td> Bacteria NONE SEEN <td> 06/29/2019 [place] [#/area] in 13:19</td><td> [facility] Urine sediment Bacteria Health Care by Microscopy </td><td> EnerG2 high power field NONE SEEN
(NONE) /HPF </td> Erythrocytes <1 <td> 06/29/2019 [place] [#/area] in 13:19</td><td> [facility] Urine sediment RBC </td><td> Health Car e by Automated EnerG2 count <1
(0-2) /HPF </td> Magnesium 2.0 mg/dL 1.6-2. <td> 07/01/2019 [place] [Mass/volume] 6 06:31</td><td> [facility] in Serum or mg/dL Magnesium Level Health Care Plasma </td><td> Corporation 2.0
(1.6-2.6) mg/dL </td> Epithelial RARE <td> 06/29/2019 [place] cells [#/area] <= FEW 13:19</td><td> [facility] in Urine Epithelial Health Care sediment by HALKAR Automated count </td><td> RARE
/LPF
<= FEW

/LPF </td> Procedure Vital Signs ID Date Data Source UNK Name Value Range Interpretation Code Description Data Source(s) Diastolic blood 75 {} Normal (applies to 75 {} [facility] pressure non-numeric results) Coun [facility] Corporati on Systolic blood 97 {} Normal (applies to 97 {} [place] pressure non-numeric results) [facility] Corpor[facility] on First Respiration 17.0000 {} Normal (applies to 17.0000 {} [place] rate Set non-numeric results) Coun ty [facility] Corpor[facility] on Heart rate 83.0000 {} Normal (applies to 83.0000 {} [facility] non-numeric results) Coun [facility] Corpor[facility] on Body temperature 95.4000 {} Normal (applies to 95.4000 {} [place] non-numeric results) Coun ty [facility] Corporati on First Respiration 22.0000 {} Normal (applies to 22.0000 {} [place] rate Set non-numeric results) Coun ty [facility] Corporati on Body temperature 96.9000 {} Normal (applies to 96.9000 {} [place] non-numeric results) Coun ty [facility] Corporati on Diastolic blood 98 {} Normal (applies to 98 {} [place] pressure non-numeric results) Coun ty [facility] Corporati on Systolic blood 148 {} Normal (applies to 148 {} [place] pressure non-numeric results) Coun ty [facility] Corporati on Heart rate 82.0000 {} Normal (applies to 82.0000 {} [facility] non-numeric results) Coun ty [facility] Corporati on wt - obtain Normal (applies to {} [facility] non-numeric results) Coun ty [facility] Corpor[facility] on weight - kg 70.9000 {} Normal (applies to 70.9000 {} [facility] non-numeric results) Coun ty [facility] Care Corporati on
[2020-08-04] MEDS ORDERED: ACETAMINOPHEN 1000 MG/100 ML VIAL (NON FORMULARY) IVPB ONE (12:02)
[2020-08-04] MEDS ORDERED: ACETAMINOPHEN INJECTION 100 ML IVPB ONE (12:34)
[2020-08-04 12:52] LABS: BASO % 1.8 % (0-2.0); EOS % 2.8 % (0-4.5); HEMATOCRIT 35.3 % (32.4-45.2); HEMOGLOBIN 11.3 GM/dl (10.7-15.3); LYMPH % 25.9 % (8-40); MCH 29.2 pg (25.7-33.7); MCHC 31.9 g/dl (32.0-36.0); MEAN CELL VOLUME 91.4 fl (80-96); MEAN PLT VOLUME 10.3 fl (7.5-11.1); MONO % 7.2 % (3.8-10.2); NEUT % 62.3 % (42.8-82.8); PLATELET COUNT 212 K/MM3 (134-434); RBC 3.87 M/mm3 (3.60-5.2); RDW 14.6 % (11.6-15.6); WHITE BLOOD COUNT 5.7 K/mm3 (4.0-10.8)
[2020-08-04 12:59] LABS: ALBUMIN 3.2 g/dl (3.4-5.0); BILIRUBIN,TOTAL 0.5 mg/dl (0.2-1); CALCIUM 8.5 mg/dl (8.5-10); CREATININE 0.8 mg/dl (0.55-1.3); POTASSIUM 4.5 mmol/L (3.5-5.1); TOT PROT 5.7 g/dl (6.4-8.2)
[2020-08-04 13:20] LABS: EPITHELIAL CELLS FEW /hpf
[2020-08-04 13:40] LABS: ACTIVATED PTT 60.3 SECONDS (25.2-36.5); PROTHROMBIN TIME (PATIENT) 84.3 SEC (10.2-13.0)
[2020-08-04 13:42] LABS: INR 7.84 (0.82-1.09)
[2020-08-04] MEDS ORDERED: PHYTONADIONE 5 MG TABLET PO ONE (14:20)
[2020-08-04] MEDS ORDERED: morphine CARPU-JECT 2 MG/1 ML DISP.SYRIN IVPUSH ONE (15:05)
--- NOTE | 2020-08-04 16:02 | HP ---
CHIEF COMPLAINT: Abdominal pain PCP: Dr. Jhonathan Damon HISTORY OF PRESENT ILLNESS: 85 year-old female with a PMH significant for HTN, CAD s/p CABG, atrial fibrillation on warfarin, s/p cholecystectomy, s/p aortic valve replacement x 2 years, h/o GI bleed from chronic gastritis, diverticulosis, and thyroid cancer. Patient has been having intermittent lower abdominal pain for two weeks. Five days ago her PCP Dr. Damon prescribed empiric cephalexin 500 mg TID for a presumed diverticulitis. Over the past 5 days, the pain became worse and went from intermittent to constant. Patient called Dr. Damon again today and he referred her to the ED. Patient describes the pain as dull, 6/10, across the lower abdomen. Denies fever, sweats, chills. Denies dysuria, urinary frequency, back pain, n/v/d/c, bloody stools, or black stools. ER course was notable for: (1) INR 7.84 (2) Vit K PO 2.5mg x 1 Recent Travel: No PAST MEDICAL HISTORY: Hypertension Coronary artery disease Atrial fibrillation GI bleed secondary to chronic gastritis Diverticulosis Thyroid cancer Osteoporosis Spinal stenosis PAST SURGICAL HISTORY: Left ulnar nerve release x 20 years Partial thyroidectomy x 3 years CABG Cholecystectomy Aortic valve replacement x 2 years Back surgery Social History: Smoking: never Alcohol: no Drugs: no Family history: reviewed and non-contributory Allergies No Known Drug Allergies Allergy (Verified 08/04/20 12:39) HOME MEDICATIONS: Home Medications Medication Instructions Recorded Warfarin Sodium [Coumadin] 5 mg PO DAILY 11/25/16 Famotidine [Pepcid] 20 mg PO DAILY 08/04/20 Levothyroxine [Synthroid -] 75 mcg PO DAILY 08/04/20 REVIEW OF SYSTEMS CONSTITUTIONAL: Absent: fever, chills, diaphoresis, generalized weakness, malaise, loss of appetite, weight change HEENT: Absent: rhinorrhea, nasal congestion, throat pain, throat swelling, difficulty swallowing, mouth swelling, ear pain, eye pain, visual changes CARDIOVASCULAR: Absent: chest pain, syncope, palpitations, irregular heart rate, lightheadedness, peripheral edema RESPIRATORY: Absent: cough, shortness of breath, dyspnea with exertion, orthopnea, wheezing, stridor, hemoptysis GASTROINTESTINAL: +abdominal pain Absent: abdominal distension, nausea, vomiting, diarrhea, constipation, melena, hematochezia GENITOURINARY: Absent: dysuria, frequency, urgency, hesitancy, hematuria, flank pain, genital pain MUSCULOSKELETAL: Absent: myalgia, arthralgia, joint swelling, back pain, neck pain SKIN: Absent: rash, itching, pallor HEMATOLOGIC/IMMUNOLOGIC: Absent: easy bleeding, easy bruising, lymphadenopathy, frequent infections ENDOCRINE: Absent: unexplained weight gain, unexplained weight loss, heat intolerance, cold intolerance NEUROLOGIC: Absent: headache, focal weakness or paresthesias, dizziness, unsteady gait, seizure, mental status changes, bladder or bowel incontinence PSYCHIATRIC: Absent: anxiety, depression, suicidal or homicidal ideation, hallucinations. PHYSICAL EXAMINATION Vital Signs - 24 hr 08/04/20 08/04/20 11:27 15:23 Temperature 98.1 F 98.1 F Pulse Rate 76 Pulse Rate [ 65 Left] Respiratory 19 18 Rate Blood Pressure 118/76 Blood Pressure 128/87 [Right Arm] O2 Sat by Pulse 99 98 Oximetry (%) GENERAL: Awake, alert, and fully oriented, in no acute distress. HEAD: Normal with no signs of trauma. EYES: Pupils equal, round and reactive to light, extraocular movements intact, sclera anicteric, conjunctiva clear. No lid lag. LUNGS: Breath sounds equal, clear to auscultation bilaterally. No wheezes, and no crackles. No accessory muscle use. HEART: Regular rate and rhythm, normal S1 and S2 ABDOMEN: Soft, nontender, not distended, normoactive bowel sounds, no guarding, no rebound. MUSCULOSKELETAL: Normal range of motion at all joints. No bony deformities or tenderness. Left CVA tenderness UPPER EXTREMITIES: 2+ pulses, warm, well-perfused. No cyanosis. No clubbing. No peripheral edema. LOWER EXTREMITIES: 2+ pulses, warm, well-perfused. No calf tenderness. No peripheral edema. NEUROLOGICAL: Cranial nerves II-XII intact. Normal speech. Laboratory Results - last 24 hr 08/04/20 08/04/20 08/04/20 12:18 12:18 12:18 WBC 5.7 RBC 3.87 Hgb 11.3 Hct 35.3 MCV 91.4 MCH 29.2 MCHC 31.9 L RDW 14.6 Plt Count 212 MPV 10.3 Absolute Neuts (auto) 3.5 Neutrophils % 62.3 Lymphocytes % 25.9 Monocytes % 7.2 Eosinophils % 2.8 Basophils % 1.8 PT with INR 84.3 H INR 7.84 H* PTT (Actin FS) 60.3 H Sodium 138 Potassium 4.5 Chloride 107 Carbon Dioxide 26 Anion Gap 5 L BUN 19.0 H Creatinine 0.8 Est GFR (CKD-EPI)AfAm 76.83 Est GFR (CKD-EPI)NonAf 66.29 Random Glucose 103 Lactic Acid Calcium 8.5 Total Bilirubin 0.5 AST 28 ALT 27 Alkaline Phosphatase 53 Total Protein 5.7 L Albumin 3.2 L Urine Color Urine Appearance Urine pH Urine Protein Urine Glucose (UA) Urine Ketones Urine Blood Urine Nitrite Urine Bilirubin Urine Urobilinogen Ur Leukocyte Esterase Urine RBC Urine WBC Ur Transition Epith Cell Urine Bacteria Stool Occult Blood 08/04/20 08/04/20 08/04/20 12:18 12:30 13:44 WBC RBC Hgb Hct MCV MCH MCHC RDW Plt Count MPV Absolute Neuts (auto) Neutrophils % Lymphocytes % Monocytes % Eosinophils % Basophils % PT with INR INR PTT (Actin FS) Sodium Potassium Chloride Carbon Dioxide Anion Gap BUN Creatinine Est GFR (CKD-EPI)AfAm Est GFR (CKD-EPI)NonAf Random Glucose Lactic Acid 1.2 Calcium Total Bilirubin AST ALT Alkaline Phosphatase Total Protein Albumin Urine Color Yellow Urine Appearance Clear Urine pH 5.0 Urine Protein Negative Urine Glucose (UA) Negative Urine Ketones Negative Urine Blood Negative Urine Nitrite Negative Urine Bilirubin Negative Urine Urobilinogen 0.2 Ur Leukocyte Esterase Trace H Urine RBC 0-2 Urine WBC 2-5 Ur Transition Epith Cell Few Urine Bacteria Few Stool Occult Blood Positive ASSESSMENT/PLAN: 85 year-old female with a PMH significant for HTN, CAD s/p CABG, atrial fibrillation on warfarin, s/p cholecystectomy, s/p aortic valve replacement x 2 years, h/o GI bleed from chronic gastritis, diverticulosis, and thyroid cancer. Admitted for supratherapeutic INR with occult stool positive concerning for bleeding. Abdominal pain Diverticulosis --pain is of uncertain etiology; CTA of abd/pelvis shows extensive diverticulosis wihtout evidence of diverticulitis; there are no acute CT findings, no fever, no leukocytosis --observe off antibiotics --NPO tonight Supratherapeutic INR Occult stool positive --INR 7.84 --discussed with PCP Dr. Damon, patient is checked monthly and INR is always within range; possible that INR went up because of lack of PO intake over the past few weeks --was given Vit K 2.5mg PO x 1 dose in ED, hold further dosing --hold coumadin --daily INR --monitor h/h closely, cbc q6h Atrial fibrillation --rate is controlled, not on rate-controlling meds --hold coumadin due to supratherapeutic INR Hypertension --not on routine anti-hypertensives Coronary artery disease s/p aortic valve replacement --stable, not on ASA, statin, beta blockers h/o GI bleed Chronic gastritis --continue famotadine Thyroid cancer s/p partial thyroidectomy Hypothyroidism --continue levothyroxine FEN Fluids: D5NS@75mL/hr Electrolytes: replete as indicated Nutrition: NPO DVT prophylasix: hold coumadin; check INR daily Physical therapy Dispo: continues to require inpatient care. A Family Medical History Family History: As Documented Visit type - Medication Review Med list reviewed for High Risk Meds patients 65 and older: Yes - Emergency Visit Emergency Visit: Yes ED Registration Date: 08/04/20 Care time: The patient presented to the Emergency Department on the above date and was hospitalized for further evaluation of their emergent condition. - New Patient This patient is new to me today: Yes Date on this admission: 08/05/20 - Critical Care Critical Care patient: No
--- OUTSIDE RECORDS SUMMARY | 2020-08-04 17:59 | XMS ---
[...] is protected by Article 27-F of the [facility] Public Health law. If you continue you may haveaccess to information: Regarding HIV / AIDS; Provided by facilities licensed or operated by the [facility] Office of Mental Health; or Provided by the [facility] Office for People With Developmental Disabilities. If such information is present, then the following [facility] mandated warning applies: This information has been [...] law may result in a fine or custodial sentence or both. A general authorization for the release of medical or other information is NOT sufficient authorization for further disclosure. Allergies and Adverse Reactions Type Description Substance Reaction Status Data Source(s ) Food allergy No Known Food No Known Food [facility] Allergies Allergies Health Care [facility] Drug allergy No Known Drug No Known Drug [facility] Allergies Allergies [facility] Drug allergy No Known Allergies No Known [facility] Allergies Health Care [facility] Encounters Encounter Providers Location Date Indications Data Source(s ) Outpatient Attender: [place], 06/29/2019 DIZZINESS [facility] RICHARDAttender: 11:06:00 PM [place] [facility] [place]OUISE, EDT [facility] ERICAdmitter: ANGELINE GIL DIZZINESS [place] Emergency Attender: LOUISE, 06/29/2019 12:43:00 FALL HEAD [facility] ERICAdmitter: LOUISE, PM EDT PAIN [facility] FALL HEAD PAIN Insurance Providers Payer name Policy type Policy ID Covered Covered republican's Policy P isrrael / Coverage republican ID relationship to Connolly Inf ormation type connolly [facility] [id number] CARE OPTIONS MEDICARE [id number] 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 EDT Care [facility] E03.9 Hypothyroidism, HYPOTHYROIDISM, Diagnosis 06/29/2019 [place] unspecified UNSPECIFIED 11:06:00 PM [facility] hospital EDT Care [facility] K21.9 Gastro-esophageal GASTRO-ESOPHAGEAL Diagnosis 06/29/2019 [place] reflux disease REFLUX DISEASE 11:06:00 PM [facility] without WITHOUT EDT Care esophagitis ESOPHAGITIS Corporation R42 Dizziness and DIZZINESS AND Diagnosis 06/29/2019 Max jimmy giddiness GIDDINESS 11:06:00 PM [facility] EDT Care Corporation R26.89 Other OTHER Diagnosis 06/29/2019 [place] abnormalities of ABNORMALITIES OF 11:06:00 PM [facility] gait and mobility GAIT AND MOBILITY EDT Care Corporation M25.78 Osteophyte, OSTEOPHYTE, Diagnosis 06/29/2019 [place] vertebrae VERTEBRAE 11:06:00 PM 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 r pulmonary valve PULMONARY VALVE 11:06:00 PM [facility] insufficiency INSUFFICIENCY EDT Care Corporation I35.1 Nonrheumatic NONRHEUMATIC Diagnosis 06/29/2019 Vianey r aortic (valve) AORTIC (VALVE) 11:06:00 PM [facility] Health insufficiency INSUFFICIENCY EDT Care Corporation I36.1 Nonrheumatic NONRHEUMATIC Diagnosis 06/29/2019 Prateekjenniferte r tricuspid (valve) TRICUSPID (VALVE) 11:06:00 PM [facility] [place]SUFFICIENCY EDT Care Corporation I34.0 Nonrheumatic NONRHEUMATIC Diagnosis 06/29/2019 Prateekanmol r mitral (valve) MITRAL (VALVE) 11:06:00 PM Count [facility] insufficiency INSUFFICIENCY EDT Care Corporation 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 block BLOCK EDT Care Corporation I51.7 Cardiomegaly CARDIOMEGALY Diagnosis 06/29/2019 Prateekjenniferte r 11:06:00 PM [facility] EDT Care Corporation I48.2 Chronic atrial CHRONIC ATRIAL Diagnosis 06/29/2019 [facility] mary fibrillation FIBRILLATION 11:06:00 PM [facility] EDT Care [facility] Y99.8 Other external OTHER EXTERNAL Diagnosis 06/29/2019 [facility] mary cause status CAUSE STATUS 11:06:00 PM [facility] EDT Care [facility] Y92.090 Kitchen in other KITCHEN IN OTH Diagnosis 06/29/2019 [place] non-institutional NON-INSTITUTIONAL 11:06:00 PM [facility] residence as the RESIDENCE PLACE EDT Care place of [facility] occurrence of the external cause W07.XXXA Fall from chair, FALL FROM CHAIR, Diagnosis 06/29/2019 [place] [facility] initial encounter INITIAL ENCOUNTER 11:06:00 PM [facility] EDT [facility] S09.90XA Unspecified injury UNSPECIFIED INJURY Diagnosis 9 [place] of head, initial OF HEAD, INITIAL 11:06:00 PM [facility] encounter ENCOUNTER EDT Care [facility] Results ID Date Data Source [id number] 07/01/2019 01:24:03 PM EDT [facility] [id number] Corporation Name Value Range Interpretation Description Data Sup porting Code Source(s) Document(s ) Head (PACSIMAGE <td> 06/29/2019 [place] Without 16:46</td><td> County Contrast- ) Final Head Without Health Care CT Result Contrast-CT Corporation Name: HEMANTH </td><td>arjun SOLANO MRN: [id number] Sex: F styleCode="Italic : s">(PACSIMAGE 1935 Location: [...]
Attending Radiologist: Paxton Rodriguez MD
Finalizing Radiologist: Paxtno Rodriguez MD
Transcribed Date: 06/29/2019 17:42
Finalized Date: 06/29/2019 17:44

</td> Angio (PACSIMAGE <td> 06/29/2019 [place] Head/Neck 16:46</td><td> County CT ) Final Angio Head/Neck Health Car e Result CT Corporation Name: HEMANTH, </td><td><iangrpelon SOLANO MRN: [id number] Sex: F styleCode="Italic : s">(PACSIMAGE 1935 Location: [...] 17:55

</td> Brain C (PACSIMAGE <td> 06/30/2019 [place] Spine C- 15:56</td><td> [facility] MRI ) Final Brain C Spine C- Health Ca re Result MRI Corporation Name: HEMANTH </td><td>arjun SOLANO MRN: [id number] Sex: F styleCode="Italic : s">(PACSIMAGE 1935 Location: [...] are appear degraded by desiccated. motion artifact. Gloriaic DrMarci Type endplate

degenerative Slight changes are (approximately [...] appear central disc
osteophyte desiccated. Modic complex DrMarci Type endplate results in degenerative mild narrowing [...]
Finalizing foramina are Radiologist: narrowed. Paxton Rodriguez
C7-T1: There is Transcribed no significant Date: [...] 06/30/2019 18:36

</td> Chest (PACSIMAGE <td> 06/29/2019 [place] Portable 13:13</td><td> [facility] Final Chest Portable Health Care Result </td><td>Gametime Name: chayito SAXENA MRN: styleCode="Italic [id number] Sex: F s">(PACSIMAGE : 1935 )</paragraph><br/ Location: F >
Final Admitting Result Physician:

EMERGENCY Name: [facility]
Requesting Physician: Sex: F TAMEKA BENDERE
: BRENDA 1935 Exam: CHEST Location: F [...] 06/29/2019 14:30

</td> ID Date Data Source [id number] 07/01/2019 01:24:03 PM EDT [facility] [id number] Corporation Name Value Range Interpretation Description Data Sup porting Code Source(s) Document(s ) Leukocytes 5.7 k/mm3 4.8-10 <td> 07/01/2019 [place] [#/volume] in .8 06:31</td><td> [facility] Blood by k/mm3 WBC </td><td> Health Care Automated count Corporation 5.7
(4.8-10.8) k/mm3 </td> Erythrocytes 4.60 m/mm3 3.90-5 <td> 07/01/2019 [facility] [#/volume] in .20 06:31</td><td> [facility] Blood m/mm3 RBC </td><td> Health Care Corporation 4.60
(3.90-5.20) m/mm3 </td> Hematocrit 37.0 % 37.0-4 <td> 07/01/2019 [place] [Volume 7.0 % 06:31</td><td> [facility] Fraction] of HCT </td><td> Health Care Blood by Corporation Automated count 37.0
(37.0-47.0) % </td> Hemoglobin 11.4 g/dL 12.0-1 <td> 07/01/2019 [place] [Mass/volume] 6.0 06:31</td><td> [facility] in Blood g/dL HGB Health Care </td><td><daniela Corporation raph styleCode="Bold "> 11.4 L </paragraph>
(12.0-16.0) g/dL </td> Erythrocyte 80.4 fL 81.0-9 <td> 07/01/2019 [place] mean 9.0 fL 06:31</td><td> [facility] corpuscular MCV Health Care volume [Entitic </td><td><daniela Corporat ion volume] by raph Automated count styleCode="Bold "> 80.4 L </paragraph>
(81.0-99.0) fL </td> Erythrocyte 30.8 % 32.0-3 <td> 07/01/2019 [place] mean 6.0 % 06:31</td><td> [facility] corpuscular [facility] Health Care hemoglobin </td><td><[email or web address] concentration raph [Mass/volume] styleCode="Bold in Blood from "> Fetus by 30.8 Automated count L </paragraph>
(32.0-36.0) % </td> Erythrocyte 15.1 % 11.5-1 <td> 07/01/2019 [place] distribution 4.5 % 06:31</td><td> County width [Entitic RDW Health Care volume] by </td><td><[employer] Automated count raph styleCode="Bold "> 15.1 H </paragraph>
(11.5-14.5) % </td> Erythrocyte 24.8 pg 27.0-3 <td> 07/01/2019 [place] mean 1.5 pg 06:31</td><td> [facility] corpuscular [facility] Health Care hemoglobin </td><td><[employer] [Entitic mass] raph by Automated styleCode="Bold count "> 24.8 L </paragraph>
(27.0-31.5) pg </td> Lymphocytes 20.0 % 17.0-5 <td> 06/29/2019 [place] [#/volume] in 0.0 % 13:10</td><td> [facility] Blood by Lymphocytes Health Care Automated count </td><td> [facility] 20.0
(17.0-50.0) % </td> Monocytes/Leuko 9.2 % 0.0-11 <td> 06/29/2019 [facility] cytes [Pure .0 % 13:10</td><td> County number Monocytes. Health Care fraction] in </td><td> Corporation Blood by Automated count 9.2
(0.0-11.0) % </td> Platelets 252 k/mm3 160-41 <td> 07/01/2019 [place] [#/volume] in 0 06:31</td><td> [facility] Blood by k/mm3 Platelet Count Health Care Automated count </td><td> [facility] 252
(160-410) k/mm3 </td> Platelet mean 10.7 fL 9.8-12 <td> 07/01/2019 [facility] r volume [Entitic .8 fL 06:31</td><td> County volume] in MPV </td><td> Health Care Blood by [facility] Automated count 10.7
(9.8-12.8) fL </td> Basophils+Eosin 3.1 % 0.0-5. <td> 06/29/2019 [facility] ophils+Monocyte 0 % 13:10</td><td> County s [#/volume] in Eosinophils Health Care Blood by </td><td> [facility] Automated count 3.1
(0.0-5.0) % </td> Immature 0.3 % 0.0-0. <td> 06/29/2019 [place] granulocytes/10 5 % 13:10</td><td> County 0 leukocytes in IG% </td><td> [facility] re Blood by [facility] Automated count 0.3
(0.0-0.5) %
The IG fraction represents metamyelocytes, myelocytes and/or
promyelocytes and is only reported as part of the automated
differential when found at a percentage of less than 6.
If higher than 6%, a manual differential will be performed.

(0.0-0.5) % </td> Basophils 1.2 % 0.0-2. <td> 06/29/2019 [place] [#/volume] in 0 % 13:10</td><td> [facility] Blood by Basophils [facility] Automated count </td><td> [facility] 1.2
(0.0-2.0) % </td> Neutrophils [#] 66.2 % 40.0-7 <td> 06/29/2019 [facility] in Body fluid 6.0 % 13:10</td><td> [facility] by Manual count Neutrophils [facility] Care </td><td> [facility] 66.2
(40.0-76.0) % </td> Glucose 89 mg/dL 70-105 <td> 07/01/2019 [place] [Mass/volume] mg/dL 06:31</td><td> County in Blood Glucose-Serum Health Care </td><td> [facility] 89
(70-105) mg/dL </td> Sodium 140 mEq/L 135-14 <td> 07/01/2019 [place] [Moles/volume] 5 06:31</td><td> County in Serum or mEq/L Sodium-Serum Health Care Plasma </td><td> [facility] 140
(135-145) mEq/L </td> Potassium 4.2 mEq/L 3.5-5. <td> 07/01/2019 [place] [Moles/volume] 1 06:31</td><td> [place] in Serum or mEq/L Potassium-Serum Health Care Plasma </td><td> [facility] 4.2
(3.5-5.1) mEq/L </td> Urea nitrogen 17 mg/dL 6-22 <td> 07/01/2019 [facility] r [Mass/volume] mg/dL 06:31</td><td> County in Blood BUN </td><td> [employer] Care Corporation 17
(6-22) mg/dL </td> Chloride 105 mEq/L 98-107 <td> 07/01/2019 [place] [Moles/volume] mEq/L 06:31</td><td> County in Serum or Chloride Health Care Plasma </td><td> [facility] 105
(98-107) mEq/L </td> Carbon dioxide, 28 mEq/L 22-30 <td> 07/01/2019 [facility] total mEq/L 06:31</td><td> County [Moles/volume] CO2 </td><td> Health Car e in Serum or Corporation Plasma 28
(22-30) mEq/L </td> Alanine 13 U/L 6-55 <td> 06/29/2019 [place] aminotransferas U/L 13:10</td><td> County e [Enzymatic ALT (SGPT) Health Care activity/volume </td><td> Corporation ] in Serum or Plasma 13
(6-55) U/L </td> Bilirubin.total 0.3 mg/dL 0.2-1. <td> 06/29/2019 [facility] [Mass/volume] 3 13:10</td><td> County in Blood mg/dL Bilirubin - Health Care Total Corporation </td><td> 0.3
(0.2-1.3) mg/dL </td> Creatinine 0.77 mg/dL 0.57-1 <td> 07/01/2019 [place] [Moles/volume] .11 06:31</td><td> County in Serum or mg/dL Creatinine. Health Care Plasma </td><td> [facility] 0.77
(0.57-1.11) mg/dL </td> Aspartate 18 U/L 4-35 <td> 06/29/2019 [place] aminotransferas U/L 13:10</td><td> County e [Enzymatic AST (SGOT) Health Care activity/volume </td><td> [facility] ] in Serum or Plasma 18
(4-35) U/L </td> Calcium 9.1 mg/dL 8.6-10 <td> 07/01/2019 [place] [Mass/volume] .2 06:31</td><td> [place] in Blood mg/dL Calcium Health Care </td><td> [facility] 9.1
(8.6-10.2) mg/dL </td> Albumin 3.7 g/dL 3.4-4. <td> 06/29/2019 [place] [Mass/volume] 8 g/dL 13:10</td><td> County in Serum or Albumin Health Care Plasma </td><td> [facility] 3.7
(3.4-4.8) g/dL </td> Anion gap in 7 mEq/L 7-13 <td> 07/01/2019 [place] Serum or Plasma mEq/L 06:31</td><td> County Anion Gap Health Care </td><td> [facility] 7
(7-13) mEq/L </td> Proteins - 6.3 g/dL 6.4-8. <td> 06/29/2019 [place] Total 3 g/dL 13:10</td><td> [facility] Proteins - Health Care Total [facility] </td><td><daniela raph styleCode="Bold "> 6.3 L </paragraph>
(6.4-8.3) g/dL </td> Globulin 2.6 gm/dL 2.9-4. <td> 06/29/2019 [place] [Mass/volume] 0 13:10</td><td> [facility] in Serum gm/dL Globulin Health Care </td><td><daniela [facility] raph styleCode="Bold "> 2.6 L </paragraph>
(2.9-4.0) gm/dL </td> Lipemic index No Lipemia <td> 07/01/2019 [facility] er of Serum or 06:31</td><td> [facility] Plasma Lipemia Index [facility] </td><td> [facility] No Lipemia
</td> Hemolysis index No <td> 07/01/2019 [facility] of Serum or Hemolysis 06:31</td><td> [facility] Plasma Hemolysis Index [facility] </td><td> [facility] No Hemolysis
</td> Prothrombin 14.8 secs 9.8-12 <td> 07/01/2019 [place] time (PT) .0 06:31</td><td> [facility] secs Prothrombin Health Care Time. [facility] </td><td><daniela raph styleCode="Bold "> 14.8 H </paragraph>
(9.8-12.0) secs </td> Phosphate 3.4 mg/dL 2.3-4. <td> 07/01/2019 [place] [Mass/volume] 7 06:31</td><td> [facility] in Serum or mg/dL Inorganic Health Care Plasma Phosphorus [facility] </td><td> 3.4
(2.3-4.7) mg/dL </td> aPTT panel - 38.3 secs 25.0-3 <td> 07/01/2019 [place] Platelet poor 2.0 06:31</td><td> [facility] plasma secs Partial Health Care Thromboplastin Corporation Time </td><td><daniela raph styleCode="Bold "> 38.3 H </paragraph>
(25.0-32.0) secs
Result confirmed. Test repeated.

(25.0-32.0) secs </td> Icteric index Not <td> 07/01/2019 [facility] r of Serum or Icteric 06:31</td><td> [facility] Plasma Icteric Index Health Care </td><td> Corporation Not Icteric
</td> Specific 1.018 {} 1.000- <td> 06/29/2019 [place] gravity of 1.035 13:19</td><td> [facility] Urine by Test Specific Health Care strip [place] [facility] </td><td> 1.018
(1.000-1.035) </td> Appearance of Clear <td> 06/29/2019 [facility] r Urine 13:19</td><td> [facility] Appearance Health Care </td><td> Corporation Clear
(CLEAR) </td> Protein Negative <td> 06/29/2019 [place] [Presence] in 13:19</td><td> [facility] Urine by Protein Health Care Automated test Qualitative Corporation strip </td><td> Negative
(NEGATIVE) </td> Nitrite Negative <td> 06/29/2019 [place] [Presence] in 13:19</td><td> [facility] Urine by Test Nitrites Health Care strip </td><td> Corporation Negative
(NEGATIVE) </td> Leukocyte TRACE <td> 06/29/2019 [place] esterase 13:19</td><td> County [Presence] in Leukocytes Health Care Urine by Test Esterase Corporation strip </td><td> TRACE
(NEGATIVE) </td> Glucose Negative <td> 06/29/2019 [place] [Presence] in 13:19</td><td> [facility] Urine by Test Glucose_ Health Care strip </td><td> Corporation Negative
(NEGATIVE) </td> Urobilinogen 0.2 mg/dL 0.0-2. <td> 06/29/2019 [place] [Presence] in 0 13:19</td><td> [facility] Urine by mg/dL Urobilinogen Health Care Automated test </td><td> Corporation strip 0.2
(0.0-2.0) mg/dL </td> Leukocytes 4 /HPF 0-5 <td> 06/29/2019 [place] [Presence] in /HPF 13:19</td><td> [facility] Urine by WBC </td><td> Health Care Automated Corporation 4
(0-5) /HPF </td> Bacteria NONE SEEN <td> 06/29/2019 [place] [#/area] in 13:19</td><td> [facility] Urine sediment Bacteria Health Care by Microscopy </td><td> [facility] high power field NONE SEEN
(NONE) /HPF </td> Erythrocytes <1 <td> 06/29/2019 [place] [#/area] in 13:19</td><td> [facility] Urine sediment RBC </td><td> Health Car e by Automated [facility] count <1
(0-2) /HPF </td> Magnesium 2.0 mg/dL 1.6-2. <td> 07/01/2019 [place] [Mass/volume] 6 06:31</td><td> [facility] in Serum or mg/dL Magnesium Level Health Care Plasma </td><td> [facility] 2.0
(1.6-2.6) mg/dL </td> Epithelial RARE <td> 06/29/2019 [place] cells [#/area] <= FEW 13:19</td><td> [facility] in Urine Epithelial Health Care sediment by [employer] Automated count </td><td> RARE
/LPF
<= FEW

/LPF </td> Procedure Vital Signs ID Date Data Source UNK Name Value Range Interpretation Code Description Data Source(s) Diastolic blood 75 {} Normal (applies to 75 {} [place] pressure non-numeric results) Coun ty Health Care Corporati on Systolic blood 97 {} Normal (applies to 97 {} [place] pressure non-numeric results) Coun ty Health Care Corporati on First Respiration 17.0000 {} Normal (applies to 17.0000 {} [place] rate Set non-numeric results) Coun ty Health Care Corporati on Heart rate 83.0000 {} Normal (applies to 83.0000 {} [place] non-numeric results) Coun ty [facility] Care Corporati on Body temperature 95.4000 {} Normal (applies to 95.4000 {} [place] non-numeric results) Coun ty Health Care Corporati on First Respiration 22.0000 {} Normal (applies to 22.0000 {} [place] rate Set non-numeric results) Coun ty Health Care Corporati on Body temperature 96.9000 {} Normal (applies to 96.9000 {} [place] non-numeric results) Coun ty Health Care Corporati [...]
[2020-08-04 18:15] VITALS: BMI 26.5
[2020-08-04] MEDS: DEXTROSE 5%-NORMAL SALINE 1,000 ML IV SCH (18:38)
[2020-08-05] MEDS: LEVOTHYROXINE NA 75 MCG TABLET (FP) PO SCH (06:10)
[2020-08-05] MEDS ORDERED: CEFTRIAXONE 1 GM in DEXTROSE 5%-WATER - 50 ML IVPB SCH (10:00)
[2020-08-05 10:34] LABS: BASO % 0.6 % (0-2.0); EOS % 3.7 % (0-4.5); HEMATOCRIT 36.2 % (32.4-45.2); HEMOGLOBIN 11.8 GM/dl (10.7-15.3); LYMPH % 32.3 % (8-40); MCH 29.7 pg (25.7-33.7); MCHC 32.5 g/dl (32.0-36.0); MEAN CELL VOLUME 91.3 fl (80-96); MEAN PLT VOLUME 9.4 fl (7.5-11.1); MONO % 7.6 % (3.8-10.2); NEUT % 55.8 % (42.8-82.8); PLATELET COUNT 240 K/MM3 (134-434); RBC 3.97 M/mm3 (3.60-5.2); RDW 14.3 % (11.6-15.6); WHITE BLOOD COUNT 5.5 K/mm3 (4.0-10.8)
[2020-08-05 10:39] LABS: INR 3.26 (0.82-1.09); PROTHROMBIN TIME (PATIENT) 35.7 SEC (10.2-13.0)
[2020-08-05 10:42] LABS: ALBUMIN 3.2 g/dl (3.4-5.0); BILIRUBIN,TOTAL 0.5 mg/dl (0.2-1); CALCIUM 8.1 mg/dl (8.5-10); MAGNESIUM 1.9 mg/dL (1.8-2.4); POTASSIUM 3.8 mmol/L (3.5-5.1); TOT PROT 5.7 g/dl (6.4-8.2)
--- NOTE | 2020-08-05 10:51 | PN ---
Physical Exam: SUBJECTIVE: Patient seen and examined at bedside. The pain is the same as it has been for days. No change. Again denies dysuria, frequency, urgency. Denies vaginal discharge. Denies fever, sweats, chills. Discussed transvaginal US study with patient and with daughter. Both agree to the study. OBJECTIVE: Vital Signs Period Temp Pulse Resp BP Sys/Appiah Pulse Ox Last 24 Hr 97.7 F-98.3 F 62-84 18-19 105-135/55-88 94-99 GENERAL: The patient is awake, alert, and fully oriented, in no acute distress. LUNGS: Breath sounds equal, clear to auscultation bilaterally, no wheezes, no crackles, no accessory muscle use. HEART: Regular rate and rhythm, S1, S2 ABDOMEN: Soft, nontender, nondistended, normoactive bowel sounds, no guarding, no rebound MUSCULO: Left CVA tenderness EXTREMITIES: 2+ pulses, warm, well-perfused, no edema. NEUROLOGICAL: Cranial nerves II through XII grossly intact. Normal speech Laboratory Results - last 24 hr 08/04/20 08/04/20 08/04/20 12:18 12:18 12:18 WBC 5.7 RBC 3.87 Hgb 11.3 Hct 35.3 MCV 91.4 MCH 29.2 MCHC 31.9 L RDW 14.6 Plt Count 212 MPV 10.3 Absolute Neuts (auto) 3.5 Neutrophils % 62.3 Lymphocytes % 25.9 Monocytes % 7.2 Eosinophils % 2.8 Basophils % 1.8 PT with INR 84.3 H INR 7.84 H* PTT (Actin FS) 60.3 H Sodium 138 Potassium 4.5 Chloride 107 Carbon Dioxide 26 Anion Gap 5 L BUN 19.0 H Creatinine 0.8 Est GFR (CKD-EPI)AfAm 76.83 Est GFR (CKD-EPI)NonAf 66.29 Random Glucose 103 Lactic Acid Calcium 8.5 Total Bilirubin 0.5 AST 28 ALT 27 Alkaline Phosphatase 53 Total Protein 5.7 L Albumin 3.2 L Urine Color Urine Appearance Urine pH Urine Protein Urine Glucose (UA) Urine Ketones Urine Blood Urine Nitrite Urine Bilirubin Urine Urobilinogen Ur Leukocyte Esterase Urine RBC Urine WBC Ur Transition Epith Cell Urine Bacteria Stool Occult Blood 08/04/20 08/04/20 08/04/20 12:18 12:30 13:44 WBC RBC Hgb Hct MCV MCH MCHC RDW Plt Count MPV Absolute Neuts (auto) Neutrophils % Lymphocytes % Monocytes % Eosinophils % Basophils % PT with INR INR PTT (Actin FS) Sodium Potassium Chloride Carbon Dioxide Anion Gap BUN Creatinine Est GFR (CKD-EPI)AfAm Est GFR (CKD-EPI)NonAf Random Glucose Lactic Acid 1.2 Calcium Total Bilirubin AST ALT Alkaline Phosphatase Total Protein Albumin Urine Color Yellow Urine Appearance Clear Urine pH 5.0 Urine Protein Negative Urine Glucose (UA) Negative Urine Ketones Negative Urine Blood Negative Urine Nitrite Negative Urine Bilirubin Negative Urine Urobilinogen 0.2 Ur Leukocyte Esterase Trace H Urine RBC 0-2 Urine WBC 2-5 Ur Transition Epith Cell Few Urine Bacteria Few Stool Occult Blood Positive 08/05/20 10:10 WBC 5.5 RBC 3.97 Hgb 11.8 Hct 36.2 MCV 91.3 MCH 29.7 MCHC 32.5 RDW 14.3 Plt Count 240 MPV 9.4 Absolute Neuts (auto) 3.1 Neutrophils % 55.8 Lymphocytes % 32.3 Monocytes % 7.6 Eosinophils % 3.7 Basophils % 0.6 PT with INR INR PTT (Actin FS) Sodium Potassium Chloride Carbon Dioxide Anion Gap BUN Creatinine Est GFR (CKD-EPI)AfAm Est GFR (CKD-EPI)NonAf Random Glucose Lactic Acid Calcium Total Bilirubin AST ALT Alkaline Phosphatase Total Protein Albumin Urine Color Urine Appearance Urine pH Urine Protein Urine Glucose (UA) Urine Ketones Urine Blood Urine Nitrite Urine Bilirubin Urine Urobilinogen Ur Leukocyte Esterase Urine RBC Urine WBC Ur Transition Epith Cell Urine Bacteria Stool Occult Blood Active Medications Generic Name Dose Route Start Last Admin Trade Name Freq PRN Reason Stop Dose Admin Famotidine 20 mg 08/05/20 10:00 Pepcid - PO DAILY AKANKSHA Dextrose/Sodium Chloride 1,000 mls @ 100 mls/hr 08/04/20 16:30 08/04/20 18:38 D5-Ns - IV 100 mls/hr ASDIR AKANKSHA Administration Ceftriaxone Sodium 1 gm/ 50 mls @ 200 mls/hr 08/05/20 10:15 Dextrose IVPB DAILY AKANKSHA Protocol Ampicillin Sodium 1 gm/ Sodium 100 mls @ 200 mls/hr 08/05/20 10:30 Chloride IVPB Q6H-IV AKANKSHA Protocol Ceftriaxone Sodium 1 gm/ 50 mls @ 200 mls/hr 10/10/20 10:00 Dextrose IVPB DAILY AKANKSHA Protocol Levothyroxine Sodium 75 mcg 08/05/20 07:00 08/05/20 06:10 Synthroid - PO 75 mcg AC[facility] Administration ASSESSMENT/PLAN: 85 year-old female with a PMH significant for HTN, CAD s/p CABG, atrial fibrillation on warfarin, s/p cholecystectomy, s/p aortic valve replacement x 2 years, h/o GI bleed from chronic gastritis, diverticulosis, and thyroid cancer. Admitted for supratherapeutic INR with occult stool positive concerning for bleeding. Abdominal pain Diverticulosis --patient is consistent in her description and location of her pain which extends all the way from left to right just below the umbilicus --pain is of uncertain etiology; there are no acute CT findings, no evidence of diverticulitis; no fever, no leukocytosis --last colonoscopy was [address] Saavedra --transvaginal US ordered r/o pyelonephritis --urine culture growing Group strep D/enterococcus and GNB, both with <100k colonies but patient has been on cephalexin x 5 days --patient denies UTI symptoms but has left CVA tenderness --start ceftriaxone (day #1) and ampicillin IV (day #1) Supratherapeutic INR Occult stool positive --INR 7.84 --discussed with PCP Dr. Damon, patient is checked monthly and INR is always within range; possible that INR went up because of lack of PO intake over the past few weeks --was given Vit K 2.5mg PO x 1 dose in ED, hold further dosing --hold coumadin --daily INR --monitor h/h closely, cbc q6h Atrial fibrillation --rate is controlled, not on rate-controlling meds --hold coumadin due to supratherapeutic INR Hypertension --not on routine anti-hypertensives Coronary artery disease s/p aortic valve replacement --stable, not on ASA, statin, beta blockers h/o GI bleed Chronic gastritis --continue famotadine Thyroid cancer s/p partial thyroidectomy Hypothyroidism --continue levothyroxine FEN Fluids: D5NS@75mL/hr Electrolytes: replete as indicated Nutrition: NPO DVT prophylasix: hold coumadin; check INR daily Physical therapy Dispo: continues to require inpatient care. Visit type - Emergency Visit Emergency Visit: Yes ED Registration Date: 08/05/20 Care time: The patient presented to the Emergency Department on the above date and was hospitalized for further evaluation of their emergent condition. - New Patient This patient is new to me today: No - Critical Care Critical Care patient: No - Medication Review Med list reviewed for High Risk Meds patients 65 and older: Yes
[2020-08-05 10:52] LABS: CREATININE 0.7 mg/dl (0.55-1.3)
[2020-08-05] MEDS: FAMOTIDINE 20 MG TABLET PO SCH (11:41)
[2020-08-05] MEDS: CEFTRIAXONE 1 GM in DEXTROSE 5%-WATER - 50 ML IVPB SCH (11:42)
[2020-08-05] MEDS: AMPICILLIN - 1 GM in SODIUM CHLORIDE 100 ML IVPB SCH ×3 (11:43→23:17)
[2020-08-05] MEDS: ACETAMINOPHEN 1000 MG/100 ML VIAL (NON FORMULARY) IVPB PRN ×2 (13:00→18:37)
[2020-08-05] MEDS: DEXTROSE 5%-NORMAL SALINE 1,000 ML IV SCH (16:30)
[2020-08-06] MEDS: AMPICILLIN - 1 GM in SODIUM CHLORIDE 100 ML IVPB SCH ×3 (06:56→11:06)
[2020-08-06] MEDS: LEVOTHYROXINE NA 75 MCG TABLET (FP) PO SCH (06:57)
--- NOTE | 2020-08-06 07:10 | EKG ---
Test Reason : Blood Pressure : / mmHG Vent. Rate : 074 BPM Atrial Rate : 077 BPM P-R Int : 000 ms QRS Dur : 148 ms QT Int : 432 ms P-R-T Axes : 000 -09 -08 degrees QTc Int : 479 ms ATRIAL FIBRILLATION RIGHT BUNDLE BRANCH BLOCK ABNORMAL ECG WHEN COMPARED WITH ECG OF 25-NOV-2016 20:52, NO SIGNIFICANT CHANGE WAS FOUND Confirmed by NEYMAR CLAY, EDD ([id number]) on 08/06/2020 7:09:42 AM Referred By: ZENA PACE Confirmed By:EDD BLACKMON MD
[2020-08-06 08:11] LABS: BASO % 0.3 % (0-2.0); HEMATOCRIT 31.5 % (32.4-45.2); HEMOGLOBIN 10.1 GM/dl (10.7-15.3); LYMPH % 20.4 % (8-40); MCH 29.5 pg (25.7-33.7); MCHC 32.2 g/dl (32.0-36.0); MEAN CELL VOLUME 91.6 fl (80-96); MONO % 7.1 % (3.8-10.2); NEUT % 69.2 % (42.8-82.8); PLATELET COUNT 208 K/MM3 (134-434); RBC 3.44 M/mm3 (3.60-5.2); RDW 14.3 % (11.6-15.6); WHITE BLOOD COUNT 6.2 K/mm3 (4.0-10.8)
[2020-08-06 08:23] LABS: PROTHROMBIN TIME (PATIENT) 22.1 SEC (10.2-13.0)
[2020-08-06 08:33] LABS: ALBUMIN 2.7 g/dl (3.4-5.0); BILIRUBIN,TOTAL 0.4 mg/dl (0.2-1); CREATININE 0.7 mg/dl (0.55-1.3); POTASSIUM 4.4 mmol/L (3.5-5.1); TOT PROT 4.9 g/dl (6.4-8.2)
[2020-08-06] MEDS: CEFTRIAXONE 1 GM in DEXTROSE 5%-WATER - 50 ML IVPB SCH (09:16)
[2020-08-06] MEDS: FAMOTIDINE 20 MG TABLET PO SCH (09:16)
[2020-08-06] MEDS ORDERED: IPRATROPIUM BR 0.02% 0.5 MG/2.5 ML VIAL.NEB. NEB PRN (10:00)
[2020-08-06] MEDS ORDERED: ALBUTEROL SO4 0.083% IH SOL 2.5 MG/3 ML VIAL.NEB. NEB PRN (10:00)
[2020-08-06] MEDS: ACETAMINOPHEN 1000 MG/100 ML VIAL (NON FORMULARY) IVPB PRN (12:11)
--- NOTE | 2020-08-06 13:31 | PN ---
Progress Note, Physician Chief Complaint: abd pain History of Present Illness: Dx; supratherapeutic abd pain 24HR events - coumadin remains on hold, INR this morning 2.0 - pt with significant wheezing this morning, also required supplemental O2-- managed with nebs and STAT CXR done - micro lab reports ESBL E.coli in UCX (<10,000CFU/ml) -Pt with 3 loose stools by 2pm - Current Medication List Current Medications: Active Medications Acetaminophen (Ofirmev Injection -) 1,000 mg IVPB Q6H PRN PRN Reason: PAIN LEVEL 1-5 Last Admin: 08/06/20 12:11 Dose: 1,000 mg Documented by: Albuterol Sulfate (Ventolin 0.083% Nebulizer Soln -) 1 amp NEB Q4H PRN PRN Reason: SHORT OF BREATH/WHEEZING Last Admin: 08/06/20 11:05 Dose: 1 amp Documented by: Famotidine (Pepcid -) 20 mg PO DAILY AKANKSHA Last Admin: 08/06/20 09:16 Dose: 20 mg Documented by: Ceftriaxone Sodium 1 gm/ (Dextrose) 50 mls @ 200 mls/hr IVPB DAILY AKANKSHA; Protocol Last Admin: 08/06/20 09:16 Dose: 200 mls/hr Documented by: Ampicillin Sodium 1 gm/ Sodium (Chloride) 100 mls @ 200 mls/hr IVPB Q6H AKANKSHA; Protocol Last Admin: 08/06/20 11:06 Dose: 200 mls/hr Documented by: Ipratropium [place] (Atrovent 0.02% Nebulizer -) 1 amp NEB Q6H PRN PRN Reason: SHORT OF BREATH/WHEEZING Stop: 08/13/20 10:00 Levothyroxine Sodium (Synthroid -) 75 mcg PO [facility] Last Admin: 08/06/20 06:57 Dose: 75 mcg Documented by: - Objective Vital Signs: Vital Signs Temperature 98.1 F 08/06/20 09:15 Pulse Rate 84 08/06/20 09:15 Respiratory Rate 19 08/06/20 09:15 Blood Pressure 103/74 08/06/20 09:15 O2 Sat by Pulse Oximetry (%) 99 08/06/20 09:15 Constitutional: Yes: No Distress, Calm Eyes: Yes: PERRL HENT: Yes: Atraumatic, Normocephalic Neck: Yes: Supple, Trachea Midline Cardiovascular: Yes: Regular Rate and Rhythm Respiratory: Yes: Diminished, On Nasal O2, Wheezes Gastrointestinal: Yes: Normal Bowel Sounds, Soft, Abdomen, Obese ...Rectal Exam: Yes: Deferred Extremities: Yes: WNL Edema: No Peripheral Pulses WNL: Yes Peripheral Pulses: Left Radial: 2+, Right Radial: 2+, Left Doralis Pedis: 2+, Right Dorsalis Pedis: 2+ Integumentary: Yes: WNL Neurological: Yes: Alert, Oriented ...Motor Strength: LUE, LLE, RUE, RLE Psychiatric: Yes: Alert, Oriented Labs: CBC, BMP 08/06/20 08:01 08/06/20 06:00 INR, PTT INR 2.00 (0.82-1.09) H 08/06/20 06:00 - ....Imaging Chest X-ray: Report Reviewed (CXR 08/06/2020 Chest: Wheezing AP portable view of the chest reveals a weak inspiration with elevated right hemidiaphragm, large heart, sternal sutures with valve replacements, sclerotic knob, prominent central markings and questionable atelectasis in the retrocardiac area. There is a hiatal hernia. The angles are sharp. The soft tissues are intact. There are de generative changes. Since 11/12/2016, retrocardiac area has become more dense. This in part is due to the hiatal hernia but an element of atelectasis cannot be excluded. Reported By: Bill Rose MD 08/06/20 [id number]) Problem List - Problems (1) Supratherapeutic INR Assessment/Plan: INR 2.0 today, H/H stable. will resume low dose coumadin tonight Code(s): R79.1 - ABNORMAL COAGULATION PROFILE (2) Hypothyroidism Assessment/Plan: c/w synthroid Code(s): E03.9 - HYPOTHYROIDISM, UNSPECIFIED (3) Atrial fibrillation Assessment/Plan: restart coumadin tonight at 2mg bleeding precautions pt is rate controlled without medications Code(s): I48.91 - UNSPECIFIED ATRIAL FIBRILLATION (4) Wheezing on both sides of chest Assessment/Plan: PRN nebs CXR with ? atelectasis Incentive spirometry PRN O2 for SOB Code(s): R06.2 - WHEEZING (5) Prophylactic measure Assessment/Plan: pepcid daily OOB to chair PT daily Code(s): Z29.9 - ENCOUNTER FOR PROPHYLACTIC MEASURES, UNSPECIFIED (6) Loose stools Assessment/Plan: Bacid daily for loose stools gentle hydration x 24hrs send c.diff would favor stopping Abx if diarrhea persists due to low bacteria count on UCX Code(s): R19.5 - OTHER FECAL ABNORMALITIES (7) Intractable abdominal pain Code(s): R10.9 - UNSPECIFIED ABDOMINAL PAIN (8) Abdominal pain Assessment/Plan: jose mireles ordered GI consult for friday will send h.pylori stool and serum will add PRN morphine due to persistent intermittent pain Code(s): R10.9 - UNSPECIFIED ABDOMINAL PAIN Qualifiers: Abdominal location: right upper quadrant Qualified Code(s): R10.11 - Right upper quadrant pain Impression/Plan Impression/Plan: Code status: Full Visit type - Emergency Visit Emergency Visit: Yes ED Registration Date: 08/05/20 Care time: The patient presented to the Emergency Department on the above date and was hospitalized for further evaluation of their emergent condition. - New Patient This patient is new to me today: Yes Date on this admission: 08/06/20 - Critical Care Critical Care patient: No - Discharge Referral Referred to [facility] No - Medication Review Med list reviewed for High Risk Meds patients 65 and older: Yes
[2020-08-06] MEDS ORDERED: SODIUM CHLORIDE 1,000 ML IV SCH (14:15)
[2020-08-06] MEDS: LACTOBACILLUS ACIDOPHILUS 1 TABLET PO SCH (14:22)
[2020-08-06] MEDS ORDERED: MORPHINE SULFATE 2 MG/ML VIAL IVPUSH PRN (15:56)
[2020-08-06] MEDS ORDERED: WARFARIN NA 2 MG TABLET PO SCH (18:00)
[2020-08-07] MEDS: LEVOTHYROXINE NA 75 MCG TABLET (FP) PO SCH (06:27)
[2020-08-07 08:33] LABS: HEMATOCRIT 31.7 % (32.4-45.2); HEMOGLOBIN 9.9 GM/dl (10.7-15.3); MCH 28.8 pg (25.7-33.7); MCHC 31.2 g/dl (32.0-36.0); MEAN CELL VOLUME 92.1 fl (80-96); MEAN PLT VOLUME 9.5 fl (7.5-11.1); PLATELET COUNT 242 K/MM3 (134-434); RBC 3.45 M/mm3 (3.60-5.2); RDW 14.5 % (11.6-15.6); WHITE BLOOD COUNT 5.7 K/mm3 (4.0-10.8)
--- NOTE | 2020-08-07 08:40 | PN ---
Progress Note (short form) - Note Progress Note: Patient seen and consult to be dictated. Patient is an 85 yo female seen for bilateral abdominal pain ?etiology. She is s/p GB in past, with sono c/w fatty liver and CT scan showing a large hiatal hernia no aortic dissection, and diverticulosis (no "itis"). Patient with normal WBC, LFTs and has been on antibiotics without change in abdominal c/o. Has known spinal DJD. Abdominal exam unremarkable Doubt symptoms due to intraabdominal etiology (although await serum li pase/amylase levels); may be due to a musculoskeletal etiology/back DJD. Suggest evaluation by Ortho/Neuro if symptoms persist and/or MRI spine. Defer further GI workup at this time Discussed with daughter.
--- NOTE | 2020-08-07 09:10 | PN ---
Physical Exam: SUBJECTIVE: Patient seen and examined at bedside. Yesterday the abdominal pain was a little better, today it is bad again. Firmly denies back pain of any kind. Per RN, had a very tiny stool, no diarrhea. Patient inteviewed in Albanian and again in Hebrew with daughter serving as cooking instructor. OBJECTIVE: Vital Signs Period Temp Pulse Resp BP Sys/Appiah Pulse Ox Last 24 Hr 97.8 F-98.1 F 73-89 18-19 103-130/64-75 94-99 GENERAL: The patient is awake, alert, and fully oriented, in no acute distress. LUNGS: Very mild expiratory wheezing MENDEL and on right HEART: Regular rate and rhythm, S1, S2 ABDOMEN: Soft, nontender, nondistended, normoactive bowel sounds, no guarding, no rebound MUSCULO: Left CVA tenderness resolved EXTREMITIES: 2+ pulses, warm, well-perfused, no edema. NEUROLOGICAL: Cranial nerves II through XII grossly intact. Normal speech Laboratory Results - last 24 hr 08/07/20 07:02 WBC 5.7 RBC 3.45 L Hgb 9.9 L Hct 31.7 L MCV 92.1 MCH 28.8 MCHC 31.2 L RDW 14.5 Plt Count 242 MPV 9.5 Active Medications Generic Name Dose Route Start Last Admin Trade Name Freq PRN Reason Stop Dose Admin Acetaminophen 1,000 mg 08/05/20 12:55 08/06/20 12:11 Ofirmev Injection - IVPB 1,000 mg Q6H PRN Administration PAIN LEVEL 1-5 Albuterol Sulfate 1 amp 08/06/20 10:00 08/06/20 11:05 Ventolin 0.083% Nebulizer Soln - NEB 1 amp Q4H PRN Administration SHORT OF BREATH/WHEEZING Famotidine 20 mg 08/05/20 10:00 08/06/20 09:16 Pepcid - PO 20 mg DAILY AKANKSHA Administration Sodium Chloride 1,000 mls @ 50 mls/hr 08/06/20 14:15 08/06/20 14:22 Normal Saline - IV 08/07/20 14:15 50 mls/hr ASDIR AKANKSHA Administration Ipratropium [place] 1 amp 08/06/20 10:00 Atrovent 0.02% Nebulizer - NEB 08/13/20 10:00 Q6H PRN SHORT OF BREATH/WHEEZING Lactobacillus Acidophilus 1 tab 08/06/20 14:15 08/06/20 14:22 Bacid - PO 1 tab DAILY AKANKSHA Administration Levothyroxine Sodium 75 mcg 08/05/20 07:00 08/07/20 06:27 Synthroid - PO 75 mcg ACBK AKANKSHA Administration Morphine Sulfate 1 mg 08/06/20 15:56 08/06/20 16:21 Morphine Sulfate IVPUSH 1 mg Q4H PRN Administration PAIN LEVEL 7 - 10 Warfarin Sodium 2 mg 08/06/20 18:00 08/06/20 18:54 Coumadin - PO 2 mg DAILY@1800 AKANKSHA Administration ASSESSMENT/PLAN 85 year-old female with a PMH significant for HTN, CAD s/p CABG, atrial fibrillation on warfarin, s/p cholecystectomy, s/p aortic valve replacement x 2 years, h/o GI bleed from chronic gastritis, diverticulosis, and thyroid cancer. Admitted for supratherapeutic INR with occult stool positive concerning for bleeding. Abdominal pain of uncertain etiology --patient is again consistent in her description and location of her pain which extends all the way from left to right just below the umbilicus, waxes and wanes, never completely goes away, 6/10, movement makes it worse --no fever, no leukocytosis --CTAP no acute findings --US transvaginal no acute findings --CT thoracic and lumbar spine with contrast: no indication of nerve root impingement --seen and evaluated by GI, low suspicion for GI source r/o pyelonephritis --urine culture now growing Enterococcus and E.coli ESBL, both with <100k colonies but patient had been on cephalexin x 5 days, --switch to Zosyn (day #1) --ID consult requested Possible pneumonia --CT shows masslike density LLL may be airspace disease v. infiltrate --starting Zosyn which will cover possible pneumonia Supratherapeutic INR Occult stool positive --INR dropped 1.57, increase warfarin dose to 4mg --daily INR Atrial fibrillation --rate is controlled, not on rate-controlling meds --coumadin restarted Hypertension --not on routine anti-hypertensives Coronary artery disease s/p aortic valve replacement --stable, not on ASA, statin, beta blockers h/o GI bleed Chronic gastritis --continue famotadine Thyroid cancer s/p partial thyroidectomy Hypothyroidism --continue levothyroxine FEN Fluids: PO intake adequate Electrolytes: replete as indicated Nutrition: regular diet DVT prophylasix: increase coumadin to 4mg; check INR daily Physical therapy Dispo: continues to require inpatient care. Visit type - Emergency Visit Emergency Visit: Yes ED Registration Date: 08/05/20 Care time: The patient presented to the Emergency Department on the above date and was hospitalized for further evaluation of their emergent condition. - New Patient This patient is new to me today: No - Critical Care Critical Care patient: No - Medication Review Med list reviewed for High Risk Meds patients 65 and older: Yes
[2020-08-07] MEDS: LACTOBACILLUS ACIDOPHILUS 1 TABLET PO SCH (09:18)
[2020-08-07] MEDS: FAMOTIDINE 20 MG TABLET PO SCH (09:18)
--- NOTE | 2020-08-07 09:34 | CONS ---
DATE OF CONSULTATION: 08/07/2020 I am asked to evaluate this 85-year-old female with abdominal pain. The patient is an 85-year-old female admitted via the emergency room with complaint of bilateral abdominal discomfort primarily in the lower abdomen. The patient had been having some lower pain for 2 weeks and had been treated with antibiotics by her primary care doctor for possible diverticulitis. She states that the pain had been getting worse since that time and the patient went to the emergency room. She was noted to have a soft abdomen with normoactive bowel sounds and nonspecific abdominal discomfort. Her laboratory tests at the time of admission included a white count of 5.7, hemoglobin of 11.3 and hematocrit 35.3. Her INR was 7.84 on Coumadin. Her chemistries were unremarkable with normal LFTs and electrolytes. The patient had a CAT scan of the abdomen and pelvis with contrast to rule out aortic dissection. There was no evidence of any type of aortic dissection. However, diverticulosis was noted along with a large hiatal hernia. The patient's hospital course has been notable for continued abdominal pain bilaterally, sometimes in the lower abdomen, sometimes more in the upper abdomen. She does have a history of spinal degenerative changes and has had disk disease in the past. Her markedly elevated INR has slowly corrected. The patient has no signs of GI bleeding. She has had additional radiographic studies including abdominal and transvaginal ultrasounds which have not shown any specific pathology to explain her abdominal complaints. She is status post cholecystectomy in the past and on sonogram has a fatty liver. The patient has had a mild cough. She denies any association of her abdominal pain with deep inspiration, cough or eating. She has been on famotidine daily. Her vital signs have been normal and she remains afebrile throughout the hospital stay. Her white count has remained normal as well, most recently 5.7. Her chemistries have also remained normal. Urine culture was unremarkable and the patient currently is on antibiotics empirically for either a cough or possible UTI. PHYSICAL EXAMINATION: General: She is a well-developed elderly female resting comfortably in bed. She has a mild cough. Lungs: Grossly clear. Cardiac: An irregular heart rate consistent with atrial fibrillation. Abdomen: Soft with normoactive bowel sounds. There is no palpable hepatosplenomegaly or mass. There is no rebound or guarding. The patient does complain of some nonspecific discomfort to deep palpation in the midabdomen bilaterally. Patient without any evidence of acute intraabdominal pathology either on exam or radiographically. Her laboratory tests are unremarkable as well with her serum lipase and amylase levels pending. There is no CAT scan evidence to suggest pancreatitis and her LFTs are normal. I suspect her pain which is bilateral and unrelated to eating may be due to a musculoskeletal etiology, possibly due to arthritis in her spine with disk disease. At the present time would not recommend any additional GI studies. Patient currently on antibiotics for ? underlying UTI versus upper respiratory infection. I discussed with daughter and will follow clinically. DELGADO DURANT M.D. [id number]
[2020-08-07 09:41] LABS: ALBUMIN 2.7 g/dl (3.4-5.0); BILIRUBIN,TOTAL 0.4 mg/dl (0.2-1); CALCIUM 8.2 mg/dl (8.5-10); CREATININE 0.7 mg/dl (0.55-1.3); MAGNESIUM 1.7 mg/dL (1.8-2.4); POTASSIUM 3.7 mmol/L (3.5-5.1); TOT PROT 4.8 g/dl (6.4-8.2)
[2020-08-07 10:02] LABS: ACTIVATED PTT 31.1 SECONDS (25.2-36.5)
[2020-08-07 10:06] LABS: INR 1.57 (0.82-1.09); PROTHROMBIN TIME (PATIENT) 17.4 SEC (10.2-13.0)
[2020-08-07] MEDS ORDERED: MAGNESIUM SULFATE IN WATER 2 GM/50 ML IVPB IVPB ONE (13:45)
[2020-08-07] MEDS ORDERED: MAGNESIUM SULF 50% (8.12 MEQ/2 ML-1 GM VIAL) IVPB ONE (13:45)
[2020-08-07] MEDS ORDERED: PIPERACILLIN/TAZOB 3.375 GM 3.375 GM in DEXTROSE 5%-WATER - 50 ML IVPB SCH (15:00)
[2020-08-07] MEDS ORDERED: PIPERACILLIN/TAZOBACTAM 3.375 GM VIAL IVPB ONE (15:21)
[2020-08-07] MEDS ORDERED: DEXTROSE 5%-WATER - 50 ML IVPB ONE (15:21)
[2020-08-07] MEDS: PIPERACILLIN/TAZOB 3.375 GM 3.375 GM in DEXTROSE 5%-WATER - 50 ML IVPB SCH ×3 (15:23→18:08)
[2020-08-07] MEDS ORDERED: WARFARIN NA 2 MG TABLET PO SCH ×2 (18:00)
[2020-08-08] MEDS: PIPERACILLIN/TAZOB 3.375 GM 3.375 GM in DEXTROSE 5%-WATER - 50 ML IVPB SCH ×2 (02:29→09:36)
[2020-08-08 05:15] VITALS: PULSE 72; TEMP 97.8
[2020-08-08] MEDS: LEVOTHYROXINE NA 75 MCG TABLET (FP) PO SCH (06:30)
[2020-08-08 06:42] VITALS: BP 121/74
--- NOTE | 2020-08-08 08:48 | CON.ID ---
Consult - Past Medical History ...: No - Alcohol/Substance Use Hx Alcohol Use: Yes (WINE OCCAS) - Smoking History Smoking history: Never smoked Have you smoked in the past 12 months: No Aproximately how many cigarettes per day: 0 Home Medications - Allergies Allergies/Adverse Reactions: Allergies Allergy/AdvReac Type Severity Reaction Status Date / Time No Known Drug Allergies Allergy Verified 08/04/20 12:39 - Home Medications Home Medications: Ambulatory Orders Warfarin Sodium [Coumadin] 5 mg PO DAILY 11/25/16 Famotidine [Pepcid] 20 mg PO DAILY 08/04/20 Levothyroxine [Synthroid -] 75 mcg PO DAILY 08/04/20 Physical Exam Vital Signs: Vital Signs Temperature 97.8 F 08/08/20 06:00 Pulse Rate 72 08/08/20 06:00 Respiratory Rate 16 08/08/20 07:29 Blood Pressure 121/74 08/08/20 06:00 O2 Sat by Pulse Oximetry (%) 96 08/08/20 07:29 Labs: CBC, BMP 08/07/20 07:02 08/07/20 07:02
[2020-08-08] MEDS ORDERED: DEXTROSE 5%-WATER - 50 ML IVPB ONE (09:28)
[2020-08-08] MEDS ORDERED: PIPERACILLIN/TAZOBACTAM 3.375 GM VIAL IVPB ONE (09:28)
[2020-08-08] MEDS: FAMOTIDINE 20 MG TABLET PO SCH (09:36)
[2020-08-08] MEDS: LACTOBACILLUS ACIDOPHILUS 1 TABLET PO SCH (09:37)
--- NOTE | 2020-08-08 09:53 | DS ---
Physical Exam: SUBJECTIVE: Patient seen and examined OBJECTIVE: Vital Signs Period Temp Pulse Resp BP Sys/Appiah Pulse Ox Last 24 Hr 97.4 F-98.4 F 65-86 16-18 105-133/47-83 94-97 PHYSICAL EXAM GENERAL: The patient is awake, alert, and fully oriented, in no acute distress. LUNGS: Breath sounds equal, clear to auscultation bilaterally, no wheezes, no crackles, no accessory muscle use. HEART: Regular rate and rhythm, S1, S2 without murmur, rub or gallop. ABDOMEN: Soft, nontender, nondistended, normoactive bowel sounds, no guarding, no rebound, no hepatosplenomegaly, no masses. EXTREMITIES: 2+ pulses, warm, well-perfused, no edema. NEUROLOGICAL: Cranial nerves II through XII grossly intact. Normal speech, steady gait LABS CBCD WBC 5.7 K/mm3 (4.0-10.8) 08/07/20 07:02 RBC 3.45 M/mm3 (3.60-5.2) L 08/07/20 07:02 Hgb 9.9 GM/dl (10.7-15.3) L 08/07/20 07:02 Hct 31.7 % (32.4-45.2) L 08/07/20 07:02 MCV 92.1 fl (80-96) 08/07/20 07:02 MCHC 31.2 g/dl (32.0-36.0) L 08/07/20 07:02 RDW 14.5 % (11.6-15.6) 08/07/20 07:02 Plt Count 242 K/MM3 (134-434) 08/07/20 07:02 MPV 9.5 fl (7.5-11.1) 08/07/20 07:02 CMP Sodium 139 mmol/L (136-145) 08/07/20 07:02 Potassium 3.7 mmol/L (3.5-5.1) 08/07/20 07:02 Chloride 110 mmol/L (98-107) H 08/07/20 07:02 Carbon Dioxide 23 mmol/L (21-32) 08/07/20 07:02 Anion Gap 6 MMOL/L (8-16) L 08/07/20 07:02 BUN 8.0 mg/dl (7-18) 08/07/20 07:02 Creatinine 0.7 mg/dl (0.55-1.3) 08/07/20 07:02 Calcium 8.2 mg/dl (8.5-10) L 08/07/20 07:02 Total Bilirubin 0.4 mg/dl (0.2-1) 08/07/20 07:02 AST 19 U/L (15-37) 08/07/20 07:02 ALT 21 U/L (13-61) 08/07/20 07:02 Alkaline Phosphatase 49 U/L (45-117) 08/07/20 07:02 Total Protein 4.8 g/dl (6.4-8.2) L 08/07/20 07:02 Albumin 2.7 g/dl (3.4-5.0) L 08/07/20 07:02 HOSPITAL COURSE: Date of Admission:08/05/20 Date of Discharge: 08/08/20 Pre hospital course 85 year-old female with a PMH significant for HTN, CAD s/p CABG, atrial fibrillation on warfarin, s/p cholecystectomy, s/p aortic valve replacement x 2 years, h/o GI bleed from chronic gastritis, diverticulosis, and thyroid cancer. Patient has been having intermittent lower abdominal pain for two weeks. Five days ago her PCP Dr. Damon prescribed empiric cephalexin 500 mg TID for a presumed diverticulitis. Over the past 5 days, the pain became worse and went from intermittent to constant. Patient called Dr. Damon again today and he referred her to the ED. Patient describes the pain as dull, 6/10, across the lower abdomen. Denies fever, sweats, chills. Denies dysuria, urinary frequency, back pain, n/v/d/c, bloody stools, or black stools. ER course (1) INR 7.84 (2) Vit K PO 2.5mg x 1 Subsequent hospital course 85 year-old female with a PMH significant for HTN, CAD s/p CABG, atrial fibrillation on warfarin, s/p cholecystectomy, s/p aortic valve replacement x 2 years, h/o GI bleed from chronic gastritis, diverticulosis, and thyroid cancer. Admitted for supratherapeutic INR with occult stool positive concerning for bleeding. Abdominal pain of uncertain etiology --patient was consistent in her description and location of her pain which extends all the way from left to right just below the umbilicus, waxes and wanes, never completely goes away, /, movement makes it worse --no fever, no leukocytosis during admission --CTAP no acute findings --US transvaginal no acute findings --CT thoracic and lumbar spine with contrast: no indication of nerve root impingement --seen and evaluated by GI, low suspicion for GI source --discussed with PCP Dr. Landaverde who suspects musculoskeletal origin; outpatient followup r/o pyelonephritis --urine culture now growing Enterococcus and E.coli ESBL, both with <100k colonies but patient had been on cephalexin x 5 days --seen and evaluated by ID, likely colonization, no further antibiotics Supratherapeutic INR Occult stool positive --warfarin was restarted on 08/06 --needs outpatient followup in 3 days Atrial fibrillation --rate is controlled, not on rate-controlling meds --coumadin restarted Hypertension --not on routine anti-hypertensives Coronary artery disease s/p aortic valve replacement --stable, not on ASA, statin, beta blockers h/o GI bleed Chronic gastritis --continued famotadine --h/h stable Thyroid cancer s/p partial thyroidectomy Hypothyroidism --continued levothyroxine Minutes to complete discharge: 35 Discharge Summary Problems reviewed: Yes Reason For Visit: GASTROINTESTINAL HEMORRHAGE/INR ELEVATED/ABD PAIN Current Active Problems Atrial fibrillation (Acute) Elevated INR (Acute) GI bleed (Acute) Hypothyroidism (Acute) Intractable abdominal pain (Acute) Loose stools (Acute) Prophylactic measure (Acute) Supratherapeutic INR (Acute) Wheezing on both sides of chest (Acute) Condition: Stable - Instructions Diet, Activity, Other Instructions: Resume taking your regular dose of warfarin 5mg this evening. You should have your INR checked on Friday by your PCP Dr. Damon. Return to the emergency department for any new or worsening symptoms. Referrals: Jhonathan Bryson MD [Primary Care Provider] - 1 Week Disposition: HOME - Home Medications Comprehensive Discharge Medication List: Ambulatory Orders Warfarin Sodium [Coumadin] 5 mg PO DAILY 11/25/16 Famotidine [Pepcid] 20 mg PO DAILY 08/04/20 Levothyroxine [Synthroid -] 75 mcg PO DAILY 08/04/20 This patient is new to me today: No Emergency Visit: Yes ED Registration Date: 08/05/20 Care time: The patient presented to the Emergency Department on the above date and was hospitalized for further evaluation of their emergent condition. Critical Care patient: No - Discharge Referral Referred to [facility] Med P.C.: No
== END 2020-08-08 12:45 | disposition home or self-care (01) | DRG 813 ==
LOC: FER 11:27 → INTOOBSV 15:04 → UNDOADMOB 15:04 → FM/S 15:04 → FER 17:36 → OBSVTOIN 08-05 12:08
PROVIDERS: ADMIT Internal Medicine; ATTEND Nurse Practitioner Acute Care
DX: D68.32 Hemorrhagic disorder due to extrinsic circulating anticoagulants (principal); R10.11 Right upper quadrant pain; I48.91 Unspecified atrial fibrillation; E03.9 Hypothyroidism, unspecified; K29.50 Unspecified chronic gastritis without bleeding; R10.9 Unspecified abdominal pain; I25.10 Atherosclerotic heart disease of native coronary artery without angina pectoris; Z95.1 Presence of aortocoronary bypass graft; R79.1 Abnormal coagulation profile; K57.90 Diverticulosis of intestine, part unspecified, without perforation or abscess without bleeding; I10 Essential (primary) hypertension
CPT/HCPCS: 36415; 71045-TC-FY; 72128-TC; 72131-TC; 74174-TC; 76700-TC; 76830-TC; 80053; 81003; 81015; 82272; 83605; 83735; 85025; 85027; 85610; 85730; 87040; 87086; 87186; 93005; 94640; 97116-GP; 97161-GP; 99285-25; C9803; G0378; J0131; U0003